=== PATIENT | female | born 1940 | race Caucasian/White ===

== ENCOUNTER 2017-07-30 10:18 | Inpatient (IN) ==
[2017-07-30] MEDS ORDERED: *HR* Heparin 5,000 UNIT/ML VIAL IVP ONE (14:13)
[2017-07-30] MEDS ORDERED: *HR* Heparin 5,000 UNIT/ML VIAL IVP PRN ×2 (14:13)
[2017-07-30] MEDS ORDERED: Heparin 25,000 UNIT/500 ML D5W 25,000 UNIT/500 ML MLS IVC SCH (14:15)
[2017-07-30] MEDS ORDERED: Ondansetron 4 MG/2 ML VIAL IVP PRN (14:15)
[2017-07-30] MEDS ORDERED: Naloxone 0.4 MG/ML INJ IVP PRN (14:15)
[2017-07-30 14:49] LABS: Hematocrit 35.8 % (35.3-44.9); Hemoglobin 12.1 g/dL (11.5-15.4); Mean Corpuscular HGB Conc 33.8 g/dL (31.6-35.5); Mean Corpuscular Hemoglobin 30.7 pg (28.0-33.3); Mean Corpuscular Volume 90.9 fL (83.0-100.0); Platelet Count 262 K/mcL (140-400); Red Blood Count 3.94 M/mcL (3.82-4.97); Red Cell Distribution Width 13.2 % (11.5-14.5)
[2017-07-30 15:00] LABS: INR 1.1; Prothrombin Time 12.3 Seconds (9.4-12.1)
[2017-07-30 15:03] LABS: Activated Partial Thrombo Time 31.2 Seconds (26.0-36.0)
--- NOTE | 2017-07-30 17:36 | Internal Med History&Physical ---
<Cody Guajardo - Last Filed: 07/30/17 18:41> Date of Encounter: 07/30/17 Time of Encounter: 13:00 Assessment and Plan (1) Elevated troponin Current visit: Yes Status: Acute Acutely elevated troponin of 0.16 on admission. Pt. is non-verbal but able to say that her chest hurt. Echocardiogram ordered STAT. Troponins trended x2. Cardiology consult ordered w/recommendation to begin heparin drip. Prior to beginning heparin drip, pt. found to have vaginal bleeding. Order for heparin drip discontinued per cardiology. pot puncher consulted who recommended transferring pt. Discussed the situation w/pts. son regarding transfer to [place] versus staying here w/Palliative Care consult. Pts. son (her POA) expressed wish to keep her at [place] w/Palliative Care. Palliative consult placed and discussed w/ Hien who will see pt. Discussed w/pts. son regarding changing code status from full code to DNRCC. Son authorized change to DNRCC. Pt. is at high risk for further morbidity d/t current troponin, vaginal bleeding, leukocytosis, and co-morbidities. Inpatient. (2) Leukocytosis Current visit: Yes Status: Acute Acute leukocytosis w/WBC of 13.6. Patient does not met SIRS criteria. IVPB ceftriaxone 1,000 mg daily and azithromycin 500 mg daily ordered for infection coverage. Monitor f/u labs. Qualifiers: Leukocytosis type: unspecified Qualified Code(s): D72.829 - Elevated white blood cell count, unspecified (3) Vaginal bleeding Current visit: Yes Status: Ruled-out Acute vaginal bleeding discovered today when pts. disposable underwear changed. pot puncher consult ordered and discussed w/Dr. Blank who recommended to transfer the pt. Discussed transfer vs. palliative care w/pts. son who expressed wish to keep her here under Palliative Care. (4) SOB (shortness of breath) Current visit: Yes Status: Acute Acute SOB likely d/t COPD versus possible pneumonia per CXR. Supplemental O2 w/ titration and SpO2 monitoring. DuoNebs Q6 scheduled. (5) Diabetes Current visit: Yes Status: Chronic Hx of chronic diabetes controlled w/oral anti-hyperglycemic medications. Will hold oral meds and administer low-dose correction insulin sliding scale with hypoglycemic protocol. BG checks ACHS. A1c in a.m. labs. Qualifiers: Diabetes mellitus type: type 2 Diabetes mellitus complication status: with unspecified complications Diabetes mellitus penitentiary insulin use: without penitentiary use Qualified Code(s): E11.8 - Type 2 diabetes mellitus with unspecified complications (6) HTN (hypertension) Current visit: Yes Status: Chronic Hx of chronic HTN. Pt. does not currently take HTN medication. Will monitor pt. and VS and administer lisinopril if pt. becomes hypertensive. Qualifiers: Hypertension type: essential hypertension Qualified Code(s): I10 - Essential (primary) hypertension (7) Dementia Current visit: Yes Status: Chronic Hx of chronic Alzheimer's-related dementia. Pt. is currently non-verbal and does not make eye contact. Falls/safety precautions. Sitter ordered. Qualifiers: Dementia type: Alzheimer's disease Alzheimer's disease onset: unspecified onset Dementia behavioral disturbance: without behavioral disturbance Qualified Code(s): G30.9 - Alzheimer's disease, unspecified; F02.80 - Dementia in other diseases classified elsewhere without behavioral disturbance; F02.80 - Dementia in other diseases classified elsewhere without behavioral disturbance; F02.80 - Dementia in other diseases classified elsewhere without behavioral disturbance (8) DVT prophylaxis Current visit: Yes Status: Acute Bilateral SCDs on LEs for DVT prophylaxis. Pharmacologic DVT prophylaxis contraindicated d/t vaginal bleeding. Internal Medicine - H&P: HPI Chief complaint: SOB/Dyspnea Admitted From: Emergency Dept Plans for Post Hospital Care: Home History of present illness: Ms. Hewitt is a 77 year old female with medical hx of CHF, dementia, diabetes , and hypertension [facility] with chief complaint of shortness of breath, dyspnea, and elevated troponin of 0.16. Patient has advanced dementia and is non-verbal during examination. The only information given by the patient is that her chest was hurting in the center of her chest. She was not able to tell how long, if it radiates, or any other information regarding current sx or denial of sx. Pt. has elevated WBC of 13.6, glucose of 186, and BNP of 244. Past Med Surg Social Fam HX - Past Medical History Source: old records reviewed Medical history: CHF, dementia, diabetes, hypertension Psychiatric history: anxiety, bipolar, schizophrenia - Social History Smoking Status: Former smoker Smokeless Tobacco Status: No Alcohol use: none Internal Medicine - H&P: Meds Bisacodyl [Woman's Laxative] 5 mg PO PRN PRN 07/28/17 [History] Cranberry 900 mg PO DAILY 07/28/17 [History] Divalproex Sodium [Depakote] 250 mg PO BID 07/28/17 [History] Docusate [Colace] 100 mg PO DAILY 07/28/17 [History] Furosemide [Lasix] 20 mg PO DAILY 07/28/17 [History] Levothyroxine [Synthroid] 50 mcg PO 0630 07/28/17 [History] Sitagliptin Phosphate [Januvia] 50 mg PO DAILY 07/28/17 [History] Aspirin [Lo-Dose Aspirin EC] 81 mg PO Q48H #0 07/29/17 [Rx] LORazepam [Ativan] 0.5 mg PO TID PRN #0 07/29/17 [Rx] Acetaminophen [Tylenol] 650 mg PO Q4H PRN 07/31/17 [History] Benztropine Mesylate 1 mg PO BID 07/31/17 [History] Ibuprofen [Motrin] 400 mg PO Q8H PRN 07/31/17 [History] Losartan Potassium [Cozaar] 50 mg PO DAILY 07/31/17 [History] Magnesium Hydroxide [Milk of Magnesia] 30 ml PO DAILY PRN 07/31/17 [History] Mv,Fe,Min/Lutein [A Thru Z [employer] Tablet] 1 tab PO DAILY 07/31/17 [ History] Ondansetron HCl [Zofran] 4 mg PO Q4H PRN 07/31/17 [History] Ziprasidone HCl [Geodon] 20 mg PO BID 07/31/17 [History] risperiDONE [RisperDAL] 1 mg PO BID 07/31/17 [History] 3 Allergy/AdvReac Type Severity Reaction Status Date / Time No Known Allergies Allergy Verified 07/28/17 06:37 ROS unobtainable: due to mental status All Systems PM: A 10-system review of systems was performed and is negative for pertinent findings except as documented above in the HPI. - Constitutional Vitals: Temp Pulse Resp BP Pulse Ox 99.7 F H 77 16 126/59 93 07/30/17 15:43 07/30/17 15:43 07/30/17 15:43 07/30/17 15:43 07/30/17 15:43 General appearance: Present: A&O X 0 - Head Head exam: Present: normal inspection - Eye Eye exam: Present: PERRL, conjuntiva pink, sclera anicteric Pupils: Present: PERRL - ENT ENT exam: Present: normal exam - Neck Neck exam general surgery: Present: normal inspection - Respiratory Respiratory exam: Present: CTAB. Absent: accessory muscle use, rales, rhonchi, wheezes - Cardiovascular Cardiovascular exam: Present: RRR, +S1, +S2. Absent: diastolic murmur, gallop, rubs, systolic murmur - GI/Abdominal GI/Abdominal exam: Present: normal bowel sounds, soft, no peritoneal signs. Absent: distended, tenderness - Rectal Rectal exam: Present: deferred - Additional comments: exam deferred. - Extremities Exam Extremities exam: Present: warm, radial pulses palpable and symmetrical. Absent : calf tenderness, cyanotic, pedal edema - Back Exam Back exam: Present: normal inspection - Neurological Exam Neurological exam: Present: altered - Skin Skin exam: Present: dry, intact Additional comments: Bruising present on backs of bilateral hands. Pt. also has bruising above left eye and ecchymosis under left eye. Internal Med - H&P Results - Labs CBC & Chem 7: 07/30/17 14:31 Labs: Short CBC 07/30/17 Range/Units 14:31 WBC 13.2 H (4.3-11.1) K/mcL Hgb 12.1 (11.5-15.4) g/dL Hct 35.8 (35.3-44.9) % Plt Count 262 (140-400) K/mcL Cardiac Enzymes 07/30/17 Range/Units 14:36 Troponin I 0.15 H* (0-0.03) ng/mL - EKG Data EKG shows normal: sinus rhythm Rate: tachycardia - EKG Data Prior EKG available for review: no EKG comments: 07/30/17 17:52 EKG dated 07/28/17 shows sinus tachycardia with left bundle branch block. - Diagnostic Studies Chest x-ray Additional comments: XR/XR chest 1V portable IMPRESSION: Haziness along the left hemidiaphragm most likely atelectasis. A small segment of developing pneumonia less likely. No consolidation otherwise <Divina,Winston P - Last Filed: 07/31/17 13:35> Date of Encounter: 07/31/17 Internal Medicine - H&P: HPI History of present illness: Ms. Hewitt is a 77 year old female All Systems PM: A 10-system review of systems was performed and is negative for pertinent findings except as documented above in the HPI. - Constitutional Vitals: Temp Pulse Resp BP Pulse Ox 97.7 F 79 16 133/68 94 07/31/17 07:00 07/31/17 07:00 07/31/17 11:01 07/31/17 07:00 07/31/17 11:01 Internal Med - H&P Results - Labs CBC & Chem 7: 07/31/17 02:46 07/31/17 02:46 Labs: Short CBC 07/30/17 07/31/17 Range/Units 14:31 02:46 WBC 13.2 H 8.6 (4.3-11.1) K/mcL Hgb 12.1 11.0 L (11.5-15.4) g/dL Hct 35.8 33.1 L (35.3-44.9) % Plt Count 262 258 (140-400) K/mcL Neutrophils # 6.6 (1.6-8.9) K/mcL BMP 07/31/17 02:46 Sodium 140 Potassium 4.0 Chloride 107 Carbon Dioxide 23 BUN 19 Creatinine 0.99 Glucose 161 H Calcium 9.2 Cardiac Enzymes 07/30/17 07/30/17 07/31/17 Range/Units 14:36 20:57 02:46 Troponin I 0.15 H* 0.08 H* 0.07 H* (0-0.03) ng/mL Liver Function 07/31/17 Range/Units 02:46 Total Bilirubin 0.3 (0.2-1.2) mg/dL AST 23 (5-34) Units/L ALT 14 (0-55) Units/L Alkaline Phosphatase 60 (38-126) Units/L Albumin 2.9 L (3.5-5.0) g/dL - Impressions ITS Impressions Echocardiogram 07/30/17 14:11 Impressions: Normal sinus rhythm. LVEF 55%. Mild concentric left ventricular hypertrophy. Mild left ventricular diastolic dysfunction. Mild aortic regurgitation. Trace mitral regurgitation. Mild tricuspid regurgitation. Left Ventricular Wall Motion: Rest Echo Findings The mid inferior lateral wall was not visualized. All other visualized wall segments showed normal motion. Findings: Study Quality * Technically adequate exam. ECG Findings * Normal sinus rhythm. Left Ventricle * LVEF 55%. * Normal LV chamber size, wall thickness and function. * Mild concentric left ventricular hypertrophy. * Mild left ventricular diastolic dysfunction. * There is no LV thrombus. Right Ventricle * Normal right ventricular structure and function. Left Atrium * Normal left atrial size. Right Atrium * Normal right atrial size. Aortic Valve * Trileaflet aortic valve. * Normal aortic valve structure. * Mild aortic regurgitation. Mitral Valve * Normal mitral valve structure. * Trace mitral regurgitation. Tricuspid Valve * Normal tricuspid valve structure. * Mild tricuspid regurgitation. * No pulmonary hypertension. Pulmonic Valve * Pulmonic valve is not well visualized. Aorta * Normally sized aortic root. Pericardium * The pericardium appears normal. ADDENDUM: 07/30/17 1803 Impressions: Normal sinus rhythm. LVEF 55%. Mild concentric left ventricular hypertrophy. Mild left ventricular diastolic dysfunction. Mild aortic regurgitation. Trace mitral regurgitation. Mild tricuspid regurgitation. Left Ventricular Wall Motion: Rest Echo Findings The mid inferior lateral wall was not visualized. All other visualized wall segments showed normal motion. Findings: Study Quality * Technically adequate exam. ECG Findings * Normal sinus rhythm. Left Ventricle * LVEF 55%. * Normal LV chamber size, wall thickness and function. * Mild concentric left ventricular hypertrophy. * Mild left ventricular diastolic dysfunction. * There is no LV thrombus. Right Ventricle * Normal right ventricular structure and function. Left Atrium * Normal left atrial size. Right Atrium * Normal right atrial size. Aortic Valve * Trileaflet aortic valve. * Normal aortic valve structure. * Mild aortic regurgitation. Mitral Valve * Normal mitral valve structure. * Trace mitral regurgitation. Tricuspid Valve * Normal tricuspid valve structure. * Mild tricuspid regurgitation. * No pulmonary hypertension. Pulmonic Valve * Pulmonic valve is not well visualized. Aorta * Normally sized aortic root. Pericardium * The pericardium appears normal. Abdomen/Pelvis CT 07/30/17 20:30 IMPRESSION: Mild mural thickening is demonstrated of the rectum. This can be due to proctitis though given patient history of bleeding, neoplasm is an additional differential consideration. Suggest correlation with any recent colonoscopy. Small bladder calculi. Uterine fibroid. Trace bilateral pleural effusions. D/ / Ramírez Price MD / Ramírez Price MD Interpreting Provider: Ramírez Price MD Chest X-Ray 07/31/17 08:21 IMPRESSION: Technically limited study due to patient positioning. Evaluation of the left lower lung zone is limited. No obvious change from prior imaging. D/ / Lauro Hudson MD / Lauro Hudson MD Interpreting Provider: Lauro Hudson MD - Attending Attestation I examined this patient and my medical decision-making was reviewed with the Resident Physician/CHIEF DISPATCHER. I agree with the documented findings, disposition and treatment plan as described except to the extent set forth below. agree with below updated palliative care and [facility] hospitalist in person regarding patent plan
[2017-07-30] MEDS ORDERED: Dextrose Gel 15 GM PO PRN ×2 (18:10)
[2017-07-30] MEDS ORDERED: D5% in Water 1,000 ML IVC PRN (18:10)
[2017-07-30] MEDS ORDERED: *HR* Dextrose 50 % in Water (Syg) 50 ML SYRINGE IVP PRN (18:10)
--- NOTE | 2017-07-30 18:32 | OB/GYN Consult Note ---
Date of Encounter: 07/30/17 Time of Encounter: 18:30 Assessment and Plan (1) Vaginal bleeding Current Visit: Yes Status: Ruled-out Pap was obtained. No bleeding was appreciated on bimanual exam nor on Pap smear. Recommend evaluation of other etiologies of bleeding. History of Present Illness Consult date: 07/30/17 History of present illness: 77-year-old white female who is admitted for medical problems was found to have "vaginal bleeding" when they changed her depends. No history is able to be obtained due to the patient's mental status. Past Med Surg Social Fam HX - Past Medical History Medical history: CHF, dementia, diabetes, hypertension Psychiatric history: anxiety, bipolar, schizophrenia - Social History Smoking Status: Former smoker Smokeless Tobacco Status: No Alcohol use: none Medications and Allergies Bisacodyl [Woman's Laxative] 5 mg PO PRN PRN 07/28/17 [History] Cranberry 900 mg PO DAILY 07/28/17 [History] Divalproex Sodium [Depakote] 125 mg PO BID 07/28/17 [History] Docusate [Colace] 100 mg PO DAILY 07/28/17 [History] Furosemide [Lasix] 20 mg PO DAILY 07/28/17 [History] Levothyroxine [Synthroid] 50 mcg PO 0630 07/28/17 [History] Sitagliptin Phosphate [Januvia] 50 mg PO DAILY 07/28/17 [History] Aspirin [Lo-Dose Aspirin EC] 81 mg PO Q48H #0 07/29/17 [Rx] LORazepam [Ativan] 0.5 mg PO TID PRN #0 07/29/17 [Rx] 3 Allergy/AdvReac Type Severity Reaction Status Date / Time No Known Allergies Allergy Verified 07/28/17 06:37 Exam - Vital Signs Vital signs: Initial Vital Signs Temp Pulse Resp BP Pulse Ox 98.8 F 74 22 114/93 93 07/30/17 12:36 07/30/17 12:36 07/30/17 12:36 07/30/17 12:36 07/30/17 12:36 - Vagina Vagina: Present: normal moisture (No bleeding was noted externally nor in the vagina.) Results Result Diagrams: 07/30/17 14:31 Abnormal lab results WBC 13.2 K/mcL (4.3-11.1) H 07/30/17 14:31 PT 12.3 Seconds (9.4-12.1) H 07/30/17 14:31 Troponin I 0.15 ng/mL (0-0.03) H* 07/30/17 14:36 All other labs normal. Consult Discharge Plan - Plan Referrals: Cordell Marte MD [Primary Care Provider] - - Attending Attestation andrez conklin md [facility]og
[2017-07-30] MEDS: cefTRIAXone 1,000 MG in Water for inj. (sterile) 10 ML IVPB SCH (20:29)
[2017-07-30] MEDS: Azithromycin 500 MG in D5% in Water 250 ML IVPB SCH (20:29)
[2017-07-30] MEDS: Insulin LISPRO 300 UNITS/3 ML VIAL SQ SCH (20:30)
[2017-07-30] MEDS: Ipratropium/Albuterol Neb 3 ML IH SCH (23:10)
[2017-07-31 03:06] LABS: Basophils % 0.3 %; Hematocrit 33.1 % (35.3-44.9); Immature Granulocytes % 0.3 % (0-4); Lymphocytes # 1.2 K/mcL (0.6-4.6); Lymphocytes % 14.2 %; Mean Corpuscular HGB Conc 33.2 g/dL (31.6-35.5); Mean Corpuscular Hemoglobin 30.1 pg (28.0-33.3); Mean Corpuscular Volume 90.7 fL (83.0-100.0); Mean Platelet Volume 10.1 fL (9.4-12.4); Monocytes # 0.8 K/mcL (0.0-1.3); Monocytes % 8.7 %; Neutrophils # 6.6 K/mcL (1.6-8.9); Platelet Count 258 K/mcL (140-400); Red Blood Count 3.65 M/mcL (3.82-4.97); Red Cell Distribution Width 13.2 % (11.5-14.5); Segmented Neutrophils % 76.5 %
[2017-07-31 03:19] LABS: Alanine Aminotransferase 14 Units/L (0-55); Albumin 2.9 g/dL (3.5-5.0); Albumin/Globulin Ratio 0.9 (1.1-2.2); Alkaline Phosphatase 60 Units/L (38-126); Aspartate Amino Transferase 23 Units/L (5-34); BUN/Creatinine Ratio 19 (6-26); Bilirubin,Total 0.3 mg/dL (0.2-1.2); Blood Urea Nitrogen 19 mg/dL (7-20); Calcium 9.2 mg/dL (8.6-10.8); Carbon Dioxide 23 mEq/L (19-29); Chloride 107 mEq/L (98-109); Cholesterol 176 mg/dL (< 200); Globulin 3.3 g/dL (2.4-3.5); Glucose 161 mg/dL (70-99); HDL Cholesterol 44 mg/dL (40-59); Magnesium 2.1 mg/dL (1.6-2.6); Osmolality,Calculated 296 (280-300); Sodium 140 mEq/L (136-145); Total Protein 6.2 g/dL (6.0-8.3); eGFR For African Americans > 60 (> 60); eGFR For Non-African Americans 54 (> 60)
[2017-07-31 03:34] LABS: LDL Cholesterol,Calculated 113 mg/dL (0-99); Triglycerides 96 mg/dL (< 150)
[2017-07-31] MEDS: Ipratropium/Albuterol Neb 3 ML IH SCH ×4 (04:15→21:54)
[2017-07-31] MEDS: Insulin LISPRO 300 UNITS/3 ML VIAL SQ SCH ×4 (08:12→22:04)
--- NOTE | 2017-07-31 08:46 | Cardiothoracic Consult Note ---
Date of Encounter: 07/31/17 Time of Encounter: 08:46 - History of Present Illness History of present illness: Ms. Hewitt is a 77 year old female Past Med Surg Social Fam HX - Past Medical History Medical history: CHF, dementia, diabetes, hypertension Psychiatric history: anxiety, bipolar, schizophrenia - Social History Smoking Status: Former smoker Smokeless Tobacco Status: No Alcohol use: none Medications and Allergies Bisacodyl [Woman's Laxative] 5 mg PO PRN PRN 07/28/17 [History] Cranberry 900 mg PO DAILY 07/28/17 [History] Divalproex Sodium [Depakote] 125 mg PO BID 07/28/17 [History] Docusate [Colace] 100 mg PO DAILY 07/28/17 [History] Furosemide [Lasix] 20 mg PO DAILY 07/28/17 [History] Levothyroxine [Synthroid] 50 mcg PO 0630 07/28/17 [History] Sitagliptin Phosphate [Januvia] 50 mg PO DAILY 07/28/17 [History] Aspirin [Lo-Dose Aspirin EC] 81 mg PO Q48H #0 07/29/17 [Rx] LORazepam [Ativan] 0.5 mg PO TID PRN #0 07/29/17 [Rx] 3 Allergy/AdvReac Type Severity Reaction Status Date / Time No Known Allergies Allergy Verified 07/28/17 06:37 All Systems Review: A 10-system review of systems was performed and is negative for pertinent findings except as documented above in the HPI. Physical Examination Vital Signs, Last 4 Hours Temp Pulse Resp BP Pulse Ox 07/31/17 07:00 97.7 F 79 15 133/68 95 07/31/17 05:53 98.4 F 70 24 124/59 99 Results 07/31/17 02:46 07/31/17 02:46 Lab Results, Last 24 hours 07/30/17 07/30/17 07/30/17 14:31 14:31 14:36 WBC 13.2 H Hgb 12.1 Hct 35.8 Plt Count 262 INR 1.1 APTT 31.2 Sodium Potassium Chloride Carbon Dioxide BUN Creatinine Glucose Calcium Magnesium Total Bilirubin AST ALT Alkaline Phosphatase Troponin I 0.15 H* 07/30/17 07/31/17 07/31/17 20:57 02:46 02:46 WBC 8.6 Hgb 11.0 L Hct 33.1 L Plt Count 258 INR APTT Sodium Potassium Chloride Carbon Dioxide BUN Creatinine Glucose Calcium Magnesium Total Bilirubin AST ALT Alkaline Phosphatase Troponin I 0.08 H* 0.07 H* 07/31/17 02:46 WBC Hgb Hct Plt Count INR APTT Sodium 140 Potassium 4.0 Chloride 107 Carbon Dioxide 23 BUN 19 Creatinine 0.99 Glucose 161 H Calcium 9.2 Magnesium 2.1 Total Bilirubin 0.3 AST 23 ALT 14 Alkaline Phosphatase 60 Troponin I Consult Discharge Plan - Plan Referrals: Cordell Marte MD [Primary Care Provider] -
[2017-07-31] MEDS: cefTRIAXone 1,000 MG in Water for inj. (sterile) 10 ML IVPB SCH (08:53)
--- NOTE | 2017-07-31 08:58 | Cardiology Consult Note ---
<Markos Padilla - Last Filed: 07/31/17 12:53> Date of Encounter: 07/31/17 Time of Encounter: 08:58 Assessment and Plan (1) Elevated troponin Current Visit: Yes Status: Acute Trop 0.02 > 0.05 > 0.05 > 0.16 > 0.15 > 0.08 > 0.07 ECHO shows EF 55%, mild TR, AR with mild LV diastolic dysfunction Cr 0.99 BNP 244 Nonverbal at this point and unable to adequately assess for active chest pain EKG consistent with LBBB In the setting of down trending troponins, no acute distress, normal ECHO, we recommend medical therapy at this time. Starting ASA and Lipitor. Followup as needed upon discharge. Cardiology will sign off at this time. Please re-consult if there are any future questions or concerns. Thanks for involving us in Ms. Hewitt's care. (2) LBBB (left bundle branch block) Current Visit: Yes Status: Acute Likely not new-onset d/t lack of significant trop bump, physical appearance and EF was normal on echo. (3) HTN (hypertension) Current Visit: Yes Status: Chronic Stable at this time. Medicine managing. Home med - Cozaar Qualifiers: Hypertension type: essential hypertension Qualified Code(s): I10 - Essential (primary) hypertension (4) DM type 2 (diabetes mellitus, type 2) Current Visit: No Status: Acute Medicine managing. Last A1c 6.0 Qualifiers: Diabetes mellitus complication status: with unspecified complications Diabetes mellitus senior care insulin use: without senior care use Qualified Code( s): E11.8 - Type 2 diabetes mellitus with unspecified complications (5) Leukocytosis Current Visit: Yes Status: Acute Trending down. Unable to obtain UA per medicine. On dual abx therapy. WBC 13.2 > 8.6 Qualifiers: Leukocytosis type: unspecified Qualified Code(s): D72.829 - Elevated white blood cell count, unspecified (6) Dementia Current Visit: Yes Status: Chronic Nonverbal. Incontinent. Unaware of baseline. Qualifiers: Dementia type: Alzheimer's disease Alzheimer's disease onset: unspecified onset Dementia behavioral disturbance: without behavioral disturbance Qualified Code(s): G30.9 - Alzheimer's disease, unspecified; F02.80 - Dementia in other diseases classified elsewhere without behavioral disturbance; F02.80 - Dementia in other diseases classified elsewhere without behavioral disturbance; F02.80 - Dementia in other diseases classified elsewhere without behavioral disturbance (7) Schizophrenia Current Visit: Yes Status: Chronic Patient is taking Risperdal and Geodon at home. Qualifiers: Schizophrenia type: unspecified Qualified Code(s): F20.9 - Schizophrenia, unspecified (8) Bipolar disorder Current Visit: Yes Status: Chronic See above. Qualifiers: Active/Remission status: remission status unspecified Qualified Code(s): F31.9 - Bipolar disorder, unspecified Discussion w patient/family: The assessment and plan as outlined above was discussed with the patient and/or family members who expressed understanding and agreement. All questions were answered. Thank you for involving us in the care of your patient. Please call with any questions. History of Present Illness History of present illness: Ms. Hewitt is a very pleasant 77 year old female with a past medical history dementia, HTN, DM, schizophrenia and bipolar disease who presented to the [facility] ED after transfer from [facility] ED after she found to have hypoxia and fever. Patient is nonverbal and this report is generated from EMR review and other clinicians. On arrival to the ED, she was found to have a WBC 13.2, Cr 0.99, BNP 244 and trop 0.02 > 0.05 > 0.05 > 0.16 > 0.15 > 0.08 > 0.07. Patient was mostly non-verbal but did express chest pain. Heparin drip was started. She was subsequently admitted via the hospitalist service and cardiology was consulted. On evaluation, no significant cardiac history per EMR. ECHO performed on 07/30/17 demonstrates EF 55%, mild TR/AR and mild LV diastolic dysfunction. After heparin was started, blood was found in her depends and anticoagulation was discontinued. OB-DIRECTOR OF EVENT MARKETING was consulted and found no source of the bleeding. She is a resident at [facility] and family decided yesterday to change her DNR status to DNR-CC. Abdominal CT demonstrates findings consistent with proctitis/mass and suggests further investigation. We will continue to follow and offer further recommendations and interventions. Past Med Surg Social Fam HX - Past Medical History Medical history: CHF, dementia, diabetes, hypertension Psychiatric history: anxiety, bipolar, schizophrenia - Social History Smoking Status: Former smoker Smokeless Tobacco Status: No Alcohol use: none Medications and Allergies Bisacodyl [Woman's Laxative] 5 mg PO PRN PRN 07/28/17 [History] Cranberry 900 mg PO DAILY 07/28/17 [History] Divalproex Sodium [Depakote] 250 mg PO BID 07/28/17 [History] Docusate [Colace] 100 mg PO DAILY 07/28/17 [History] Furosemide [Lasix] 20 mg PO DAILY 07/28/17 [History] Levothyroxine [Synthroid] 50 mcg PO 0630 07/28/17 [History] Sitagliptin Phosphate [Januvia] 50 mg PO DAILY 07/28/17 [History] Aspirin [Lo-Dose Aspirin EC] 81 mg PO Q48H #0 07/29/17 [Rx] LORazepam [Ativan] 0.5 mg PO TID PRN #0 07/29/17 [Rx] Acetaminophen [Tylenol] 650 mg PO Q4H PRN 07/31/17 [History] Benztropine Mesylate 1 mg PO BID 07/31/17 [History] Ibuprofen [Motrin] 400 mg PO Q8H PRN 07/31/17 [History] Losartan Potassium [Cozaar] 50 mg PO DAILY 07/31/17 [History] Magnesium Hydroxide [Milk of Magnesia] 30 ml PO DAILY PRN 07/31/17 [History] Mv,Fe,Min/Lutein [A Thru Z [employer]'s Tablet] 1 tab PO DAILY 07/31/17 [ History] Ondansetron HCl [Zofran] 4 mg PO Q4H PRN 07/31/17 [History] Ziprasidone HCl [Geodon] 20 mg PO BID 07/31/17 [History] risperiDONE [RisperDAL] 1 mg PO BID 07/31/17 [History] 3 Allergy/AdvReac Type Severity Reaction Status Date / Time No Known Allergies Allergy Verified 07/28/17 06:37 ROS unobtainable: due to mental status All Systems Review: A 10-system review of systems was performed and is negative for pertinent findings except as documented above in the HPI. Physical Examination Vital Signs, Last 4 Hours Temp Pulse Resp BP Pulse Ox 07/31/17 07:00 97.7 F 79 15 133/68 95 07/31/17 05:53 98.4 F 70 24 124/59 99 General: Other (sitting in bed, not conversant, focused on bedding and keeps running her hands down the edge of the blanket but cooperates with exam.) HEENT: Atraumatic, Normocephaly, Mucus Membranes Moist Neck: No JVD, Normal carotid pulses Cardiac: Reg Rate and Rhythm, Normal S1 and S2, No Murmur Lungs: Normal Breath Sounds, No Wheeze, Rales, Rhonchi Neuro: Other (nonverbal) Abdomen: Soft, Non-Tender Skin: No rashes noted on visualized skin Musculoskeletal: No Chest Wall Tenderness Extremities: No Clubbing, No Cyanosis, No Edema, Normal Pulses Results 07/31/17 02:46 07/31/17 02:46 Lab Results 07/30/17 07/30/17 07/30/17 14:31 14:31 14:36 WBC 13.2 H Hgb 12.1 Hct 35.8 Plt Count 262 INR 1.1 APTT 31.2 Sodium Potassium Chloride Carbon Dioxide BUN Creatinine Glucose Calcium Magnesium Total Bilirubin AST ALT Alkaline Phosphatase Troponin I 0.15 H* 07/30/17 07/31/17 07/31/17 20:57 02:46 02:46 WBC 8.6 Hgb 11.0 L Hct 33.1 L Plt Count 258 INR APTT Sodium Potassium Chloride Carbon Dioxide BUN Creatinine Glucose Calcium Magnesium Total Bilirubin AST ALT Alkaline Phosphatase Troponin I 0.08 H* 0.07 H* 07/31/17 02:46 WBC Hgb Hct Plt Count INR APTT Sodium 140 Potassium 4.0 Chloride 107 Carbon Dioxide 23 BUN 19 Creatinine 0.99 Glucose 161 H Calcium 9.2 Magnesium 2.1 Total Bilirubin 0.3 AST 23 ALT 14 Alkaline Phosphatase 60 Troponin I - Imaging and Cardiology Chest Xray: report reviewed Echo: report reviewed - EKG Interpretation EKG results cardiology: personally reviewed, left bundle branch block Consult Discharge Plan - Plan Referrals: Cordell Marte MD [Primary Care Provider] - <Luz Roque - Last Filed: 07/31/17 18:36> Date of Encounter: 07/31/17 - Attending Attestation I examined this patient and my medical decision-making was reviewed with the Resident Physician. I agree with the documented findings, disposition and treatment plan as described except to the extent set forth below. Ms. Hewitt was transferred from her nursing facility with hypoxia and fever. She was noted to have a mildly elevated troponin and heparin drip was started but then subsequently stopped secondary to concern for vaginal bleeding. She had an echo performed demonstrating normal LV systolic function and an EKG demonstrating LBBB - no prior EKG for comparison. She has baseline dementia making communication difficult. She is not able to report recent symptoms. Nevertheless, her echo done this admission demonstrated normal LV systolic function. No further testing is warranted at this time. Recommend conservative medical management given her comorbidities. Continue aspirin (no vaginal bleeding per DIRECTOR OF EVENT MARKETING) and statin. We will sign off. Please call with questions. Assessment and Plan Discussion w patient/family: The assessment and plan as outlined above was discussed with the patient and/or family members who expressed understanding and agreement. All questions were answered. Thank you for involving us in the care of your patient. Please call with any questions. History of Present Illness History of present illness: Ms. Hewitt is a 77 year old female All Systems Review: A 10-system review of systems was performed and is negative for pertinent findings except as documented above in the HPI. Physical Examination Vital Signs, Last 4 Hours Temp Pulse Resp BP Pulse Ox 07/31/17 16:14 16 98 07/31/17 15:00 98.3 F 82 20 142/65 97 Results 07/31/17 02:46 07/31/17 02:46 Lab Results 07/30/17 07/31/17 07/31/17 20:57 02:46 02:46 WBC 8.6 Hgb 11.0 L Hct 33.1 L Plt Count 258 Sodium Potassium Chloride Carbon Dioxide BUN Creatinine Glucose Calcium Magnesium Total Bilirubin AST ALT Alkaline Phosphatase Troponin I 0.08 H* 0.07 H* 07/31/17 02:46 WBC Hgb Hct Plt Count Sodium 140 Potassium 4.0 Chloride 107 Carbon Dioxide 23 BUN 19 Creatinine 0.99 Glucose 161 H Calcium 9.2 Magnesium 2.1 Total Bilirubin 0.3 AST 23 ALT 14 Alkaline Phosphatase 60 Troponin I
--- NOTE | 2017-07-31 09:07 | Internal Med Progress Note ---
<Danny Flores - Last Filed: 07/31/17 16:13> Date of Encounter: 07/31/17 Time of Encounter: 09:04 - Assessment and plan (1) HAP (hospital-acquired pneumonia) Current Visit: Yes Status: Suspected Assessment and plan: Resident at [facility], patient reports productive cough CT abd reveals trace bilateral pleural effusions CXR reveals haziness along the left hemidiaphragm/ possible early PNA Speech therapy started patient on pureed diet and thin liquids Blood cultures show no growth to date Sputum culture pending Continue empiric Azithromycin and Rocephin Continue to monitor (2) UTI (urinary tract infection) Current Visit: Yes Status: Acute Assessment and plan: UA reveals cloudy appearance, hematuria, and ketones Urine culture revealed Aerococcus urinae, sensitivity pending De-escalate antibiotics based on culture results Qualifiers: Urinary tract infection type: site unspecified Hematuria presence: with hematuria Qualified Code(s): N39.0 - Urinary tract infection, site not specified; R31.9 - Hematuria, unspecified; R31.9 - Hematuria, unspecified (3) Anemia Current Visit: Yes Status: Acute Assessment and plan: HGB dropped from 12.[address] abd/plv reveals mild mural thickening is demonstrated of the rectum. This can be due to proctitis though given patient history of bleeding, neoplasm is an additional differential consideration. Suggest correlation with any recent colonoscopy. UROLOGY NURSE consulted and ruled out vaginal bleed Fecal occult blood test pending No signs of active bleeding Will discussed treatment options with family Continue to monitor Qualifiers: Anemia type: unspecified type Qualified Code(s): D64.9 - Anemia, unspecified (4) Meningioma Current Visit: No Status: Acute Assessment and plan: Family reports she was sent to the ED due to foaming at the mouth, possible history of seizures and patient is currently on Depakote Patient has tongue erythema but no tongue lacerations CT brain reveals 2.2 x 2.5 x 2.6 cm partially calcified extra-axial mass centered along the anterior falx, with local mass effect upon the adjacent structures, likely related to a meningioma. Follow-up brain MRI with and without contrast is recommended Seizure precautions, consider obtaining EEG Case discussed with family. Family decided yesterday to change her DNR status to DNR-CC. Anticipate bedside meeting tomorrow to discuss further treatment plan. (5) Dementia Current Visit: Yes Status: Chronic Assessment and plan: Advanced Dementia per family Continue home Geodon and Ativan prn Qualifiers: Dementia type: Alzheimer's disease Alzheimer's disease onset: unspecified onset Dementia behavioral disturbance: without behavioral disturbance Qualified Code(s): G30.9 - Alzheimer's disease, unspecified; F02.80 - Dementia in other diseases classified elsewhere without behavioral disturbance; F02.80 - Dementia in other diseases classified elsewhere without behavioral disturbance; F02.80 - Dementia in other diseases classified elsewhere without behavioral disturbance (6) Parkinsonian tremor Current Visit: Yes Status: Acute Assessment and plan: Continue Cogentin (7) Elevated troponin Current Visit: Yes Status: Acute Assessment and plan: Trop 0.02 > 0.05 > 0.05 > 0.16 > 0.15 > 0.08 > 0.07 ECHO shows EF 55%, mild TR, AR with mild LV diastolic dysfunction Cardiology sign off, current unlikely ACS (8) LBBB (left bundle branch block) Current Visit: Yes Status: Acute Assessment and plan: Cardiology following and signed off (9) HTN (hypertension) Current Visit: Yes Status: Chronic Assessment and plan: Continue Cozaar and Lasix Qualifiers: Hypertension type: essential hypertension Qualified Code(s): I10 - Essential (primary) hypertension (10) DM type 2 (diabetes mellitus, type 2) Current Visit: No Status: Acute Assessment and plan: HGB A1c 6.0 Continue accuchecks and low dose SSI Qualifiers: Diabetes mellitus complication status: with unspecified complications 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 Patient is A&Ox1 and reports productive cough. She denies any further c/o at this time. Nursing reports inability to obtain UA due to urinary incontinence. Patient has no signs of active bleeding on exam and HGB is slightly decreased. Abdominal CT demonstrates findings consistent with proctitis/mass and suggests further investigation. Case discussed with family. Family decided yesterday to change her DNR status to DNR-CC. Anticipate bedside meeting tomorrow to discuss further treatment plan. - Constitutional Vitals: Temp Pulse Resp BP Pulse Ox 97.7 F 79 15 133/68 95 07/31/17 07:00 07/31/17 07:00 07/31/17 07:00 07/31/17 07:00 07/31/17 07:00 General appearance: Present: A&O X 1, pleasant, no acute distress. Absent: answers questions appropriately - Expanded Head Exam Head exam expanded: Present: contusion (left frontal scalp). Absent: abrasion, laceration - Eye Eye exam: Present: EOMI, conjuntiva pink, sclera anicteric - ENT ENT exam: Present: mucous membranes dry, normal oropharynx - Neck Neck exam general surgery: Present: normal inspection, supple - Respiratory Respiratory exam: Present: decreased breath sounds (bilaterally, poor inspiratory effort). Absent: accessory muscle use, respiratory distress - Cardiovascular Cardiovascular exam: Present: RRR, +S1, +S2 - GI/Abdominal GI/Abdominal exam: Present: soft. Absent: distended, guarding, tenderness - Rectal Rectal exam: Present: normal inspection. Absent: bloody stool, hemorrhoids - Additional comments: no ramirez - Extremities Exam Extremities exam: Present: warm. Absent: pedal edema, radial pulses palpable and symmetrical - Back Exam Back exam: Present: normal inspection. Absent: paraspinal tenderness, tenderness - Neurological Exam Neurological exam: Present: altered, no focal deficits. Absent: oriented X3 - Expanded Neurological Exam Neurological exam expanded: Present: tremor (Pill rolling tremor, mask-like face ) Coma Scale Eye Opening: Spontaneous Coma Scale Motor Response: Localizes to Pain Coma Scale Verbal Response: Confused Coma Scale Total: 13 - Psychiatric Additional comments: unable to access - Skin Skin exam: Present: dry, intact, warm. Absent: pallor Additional comments: no decubitus ulcers Internal Medicine: Result - Labs CBC & Chem 7: 07/31/17 02:46 07/31/17 02:46 Labs: Short CBC 07/30/17 07/31/17 Range/Units 14:31 02:46 WBC 13.2 H 8.6 (4.3-11.1) K/mcL Hgb 12.1 11.0 L (11.5-15.4) g/dL Hct 35.8 33.1 L (35.3-44.9) % Plt Count 262 258 (140-400) K/mcL Neutrophils # 6.6 (1.6-8.9) K/mcL BMP 07/31/17 02:46 Sodium 140 Potassium 4.0 Chloride 107 Carbon Dioxide 23 BUN 19 Creatinine 0.99 Glucose 161 H Calcium 9.2 Cardiac Enzymes 07/30/17 07/30/17 07/31/17 Range/Units 14:36 20:57 02:46 Troponin I 0.15 H* 0.08 H* 0.07 H* (0-0.03) ng/mL Liver Function 07/31/17 Range/Units 02:46 Total Bilirubin 0.3 (0.2-1.2) mg/dL AST 23 (5-34) Units/L ALT 14 (0-55) Units/L Alkaline Phosphatase 60 (38-126) Units/L Albumin 2.9 L (3.5-5.0) g/dL - ABG Interpretation ABG results: PT/INR, D-dimer PT 12.3 Seconds (9.4-12.1) H 07/30/17 14:31 - Pulse Oximetry Interpretation Digit-Finger Pulse Oximetry Readin (on 2L via NC) Actions taken: none - Impressions Impressions Echocardiogram 07/30/17 14:11 Impressions: Normal sinus rhythm. LVEF 55%. Mild concentric left ventricular hypertrophy. Mild left ventricular diastolic dysfunction. Mild aortic regurgitation. Trace mitral regurgitation. Mild tricuspid regurgitation. Left Ventricular Wall Motion: Rest Echo Findings The mid inferior lateral wall was not visualized. All other visualized wall segments showed normal motion. Findings: Study Quality * Technically adequate exam. ECG Findings * Normal sinus rhythm. Left Ventricle * LVEF 55%. * Normal LV chamber size, wall thickness and function. * Mild concentric left ventricular hypertrophy. * Mild left ventricular diastolic dysfunction. * There is no LV thrombus. Right Ventricle * Normal right ventricular structure and function. Left Atrium * Normal left atrial size. Right Atrium * Normal right atrial size. Aortic Valve * Trileaflet aortic valve. * Normal aortic valve structure. * Mild aortic regurgitation. Mitral Valve * Normal mitral valve structure. * Trace mitral regurgitation. Tricuspid Valve * Normal tricuspid valve structure. * Mild tricuspid regurgitation. * No pulmonary hypertension. Pulmonic Valve * Pulmonic valve is not well visualized. Aorta * Normally sized aortic root. Pericardium * The pericardium appears normal. ADDENDUM: 07/30/17 1803 Impressions: Normal sinus rhythm. LVEF 55%. Mild concentric left ventricular hypertrophy. Mild left ventricular diastolic dysfunction. Mild aortic regurgitation. Trace mitral regurgitation. Mild tricuspid regurgitation. Left Ventricular Wall Motion: Rest Echo Findings The mid inferior lateral wall was not visualized. All other visualized wall segments showed normal motion. Findings: Study Quality * Technically adequate exam. ECG Findings * Normal sinus rhythm. Left Ventricle * LVEF 55%. * Normal LV chamber size, wall thickness and function. * Mild concentric left ventricular hypertrophy. * Mild left ventricular diastolic dysfunction. * There is no LV thrombus. Right Ventricle * Normal right ventricular structure and function. Left Atrium * Normal left atrial size. Right Atrium * Normal right atrial size. Aortic Valve * Trileaflet aortic valve. * Normal aortic valve structure. * Mild aortic regurgitation. Mitral Valve * Normal mitral valve structure. * Trace mitral regurgitation. Tricuspid Valve * Normal tricuspid valve structure. * Mild tricuspid regurgitation. * No pulmonary hypertension. Pulmonic Valve * Pulmonic valve is not well visualized. Aorta * Normally sized aortic root. Pericardium * The pericardium appears normal. Abdomen/Pelvis CT 07/30/17 20:30 IMPRESSION: Mild mural thickening is demonstrated of the rectum. This can be due to proctitis though given patient history of bleeding, neoplasm is an additional differential consideration. Suggest correlation with any recent colonoscopy. Small bladder calculi. Uterine fibroid. Trace bilateral pleural effusions. D/ / Ramírez Price MD / Ramírez Price MD Interpreting Provider: Ramírez Price MD Chest X-Ray 07/31/17 08:21 IMPRESSION: Technically limited study due to patient positioning. Evaluation of the left lower lung zone is limited. No obvious change from prior imaging. D/ / Lauro Hudson MD / Lauro Hudson MD Interpreting Provider: Lauro Hudson MD Consult Discharge Plan - Plan Referrals: Cordell Marte MD [Primary Care Provider] - <Coleen Momin - Last Filed: 07/31/17 17:23> Date of Encounter: 07/31/17 - Constitutional Vitals: Temp Pulse Resp BP Pulse Ox 98.3 F 82 16 142/65 98 07/31/17 15:00 07/31/17 15:00 07/31/17 16:14 07/31/17 15:00 07/31/17 16:14 Internal Medicine: Result - Labs CBC & Chem 7: 07/31/17 02:46 07/31/17 02:46 Labs: Short CBC 07/31/17 Range/Units 02:46 WBC 8.6 (4.3-11.1) K/mcL Hgb 11.0 L (11.5-15.4) g/dL Hct 33.1 L (35.3-44.9) % Plt Count 258 (140-400) K/mcL Neutrophils # 6.6 (1.6-8.9) K/mcL BMP 07/31/17 02:46 Sodium 140 Potassium 4.0 Chloride 107 Carbon Dioxide 23 BUN 19 Creatinine 0.99 Glucose 161 H Calcium 9.2 Cardiac Enzymes 07/30/17 07/31/17 Range/Units 20:57 02:46 Troponin I 0.08 H* 0.07 H* (0-0.03) ng/mL Liver Function 07/31/17 Range/Units 02:46 Total Bilirubin 0.3 (0.2-1.2) mg/dL AST 23 (5-34) Units/L ALT 14 (0-55) Units/L Alkaline Phosphatase 60 (38-126) Units/L Albumin 2.9 L (3.5-5.0) g/dL - ABG Interpretation ABG results: PT/INR, D-dimer PT 12.3 Seconds (9.4-12.1) H 07/30/17 14:31 - Impressions Impressions Echocardiogram 07/30/17 14:11 Impressions: Normal sinus rhythm. LVEF 55%. Mild concentric left ventricular hypertrophy. Mild left ventricular diastolic dysfunction. Mild aortic regurgitation. Trace mitral regurgitation. Mild tricuspid regurgitation. Left Ventricular Wall Motion: Rest Echo Findings The mid inferior lateral wall was not visualized. All other visualized wall segments showed normal motion. Findings: Study Quality * Technically adequate exam. ECG Findings * Normal sinus rhythm. Left Ventricle * LVEF 55%. * Normal LV chamber size, wall thickness and function. * Mild concentric left ventricular hypertrophy. * Mild left ventricular diastolic dysfunction. * There is no LV thrombus. Right Ventricle * Normal right ventricular structure and function. Left Atrium * Normal left atrial size. Right Atrium * Normal right atrial size. Aortic Valve * Trileaflet aortic valve. * Normal aortic valve structure. * Mild aortic regurgitation. Mitral Valve * Normal mitral valve structure. * Trace mitral regurgitation. Tricuspid Valve * Normal tricuspid valve structure. * Mild tricuspid regurgitation. * No pulmonary hypertension. Pulmonic Valve * Pulmonic valve is not well visualized. Aorta * Normally sized aortic root. Pericardium * The pericardium appears normal. ADDENDUM: 07/30/17 180 Impressions: Normal sinus rhythm. LVEF 55%. Mild concentric left ventricular hypertrophy. Mild left ventricular diastolic dysfunction. Mild aortic regurgitation. Trace mitral regurgitation. Mild tricuspid regurgitation. Left Ventricular Wall Motion: Rest Echo Findings The mid inferior lateral wall was not visualized. All other visualized wall segments showed normal motion. Findings: Study Quality * Technically adequate exam. ECG Findings * Normal sinus rhythm. Left Ventricle * LVEF 55%. * Normal LV chamber size, wall thickness and function. * Mild concentric left ventricular hypertrophy. * Mild left ventricular diastolic dysfunction. * There is no LV thrombus. Right Ventricle * Normal right ventricular structure and function. Left Atrium * Normal left atrial size. Right Atrium * Normal right atrial size. Aortic Valve * Trileaflet aortic valve. * Normal aortic valve structure. * Mild aortic regurgitation. Mitral Valve * Normal mitral valve structure. * Trace mitral regurgitation. Tricuspid Valve * Normal tricuspid valve structure. * Mild tricuspid regurgitation. * No pulmonary hypertension. Pulmonic Valve * Pulmonic valve is not well visualized. Aorta * Normally sized aortic root. Pericardium * The pericardium appears normal. Abdomen/Pelvis CT 07/30/17 20:30 IMPRESSION: Mild mural thickening is demonstrated of the rectum. This can be due to proctitis though given patient history of bleeding, neoplasm is an additional differential consideration. Suggest correlation with any recent colonoscopy. Small bladder calculi. Uterine fibroid. Trace bilateral pleural effusions. D/ / Ramírez Price MD / Ramírez Price MD Interpreting Provider: Ramírez Price MD Chest X-Ray 07/31/17 08:21 IMPRESSION: Technically limited study due to patient positioning. Evaluation of the left lower lung zone is limited. No obvious change from prior imaging. D/ / Lauro Hudson MD / Lauro Hudson MD Interpreting Provider: Lauro Hudson MD - Attending Attestation I have seen and examined pt independently. I have discussed with Resident physician Dr Flores regarding the management plan. Agree with the documentation. Pt has dementia, nonverbal. Looks in no acute distress. Cont abx for pneumonia. Further goal of care determined by family meeting tomorrow. Cont supportive treatment and closely monitor pt.
--- NOTE | 2017-07-31 09:36 | Palliative - Consult Note ---
<Markos Padilla - Last Filed: 07/31/17 11:14> Date of Encounter: 07/31/17 Palliative-CN HPI - Data of Consult Requesting Physician: Coleen Momin MD Primary Care Provider: Cordell Marte MD - Consult Narrative History of present illness: Ms. Hewitt is a 77 year old female CC: Coleen Momin MD Medications and Allergies Bisacodyl [Woman's Laxative] 5 mg PO PRN PRN 07/28/17 [History] Cranberry 900 mg PO DAILY 07/28/17 [History] Divalproex Sodium [Depakote] 250 mg PO BID 07/28/17 [History] Docusate [Colace] 100 mg PO DAILY 07/28/17 [History] Furosemide [Lasix] 20 mg PO DAILY 07/28/17 [History] Levothyroxine [Synthroid] 50 mcg PO 0630 07/28/17 [History] Sitagliptin Phosphate [Januvia] 50 mg PO DAILY 07/28/17 [History] Aspirin [Lo-Dose Aspirin EC] 81 mg PO Q48H #0 07/29/17 [Rx] LORazepam [Ativan] 0.5 mg PO TID PRN #0 07/29/17 [Rx] Acetaminophen [Tylenol] 650 mg PO Q4H PRN 07/31/17 [History] Benztropine Mesylate 1 mg PO BID 07/31/17 [History] Ibuprofen [Motrin] 400 mg PO Q8H PRN 07/31/17 [History] Losartan Potassium [Cozaar] 50 mg PO DAILY 07/31/17 [History] Magnesium Hydroxide [Milk of Magnesia] 30 ml PO DAILY PRN 07/31/17 [History] Mv,Fe,Min/Lutein [A Thru Z [employer]'s Tablet] 1 tab PO DAILY 07/31/17 [ History] Ondansetron HCl [Zofran] 4 mg PO Q4H PRN 07/31/17 [History] Ziprasidone HCl [Geodon] 20 mg PO BID 07/31/17 [History] risperiDONE [RisperDAL] 1 mg PO BID 07/31/17 [History] 3 Allergy/AdvReac Type Severity Reaction Status Date / Time No Known Allergies Allergy Verified 07/28/17 06:37 Palliative Care-Exam - Constitutional Vitals: Temp Pulse Resp BP Pulse Ox 97.7 F 79 15 133/68 95 07/31/17 07:00 07/31/17 07:00 07/31/17 07:00 07/31/17 07:00 07/31/17 09:03 Internal Medicine - CN: Reslt - Labs CBC & Chem 7: 07/31/17 02:46 07/31/17 02:46 Labs: Short CBC 07/30/17 07/31/17 Range/Units 14:31 02:46 WBC 13.2 H 8.6 (4.3-11.1) K/mcL Hgb 12.1 11.0 L (11.5-15.4) g/dL Hct 35.8 33.1 L (35.3-44.9) % Plt Count 262 258 (140-400) K/mcL Neutrophils # 6.6 (1.6-8.9) K/mcL BMP 07/31/17 02:46 Sodium 140 Potassium 4.0 Chloride 107 Carbon Dioxide 23 BUN 19 Creatinine 0.99 Glucose 161 H Calcium 9.2 Cardiac Enzymes 07/30/17 07/30/17 07/31/17 Range/Units 14:36 20:57 02:46 Troponin I 0.15 H* 0.08 H* 0.07 H* (0-0.03) ng/mL Liver Function 07/31/17 Range/Units 02:46 Total Bilirubin 0.3 (0.2-1.2) mg/dL AST 23 (5-34) Units/L ALT 14 (0-55) Units/L Alkaline Phosphatase 60 (38-126) Units/L Albumin 2.9 L (3.5-5.0) g/dL - ABG Interpretation ABG results: PT/INR, D-dimer PT 12.3 Seconds (9.4-12.1) H 07/30/17 14:31 - Impressions Impressions Echocardiogram 07/30/17 14:11 Impressions: Normal sinus rhythm. LVEF 55%. Mild concentric left ventricular hypertrophy. Mild left ventricular diastolic dysfunction. Mild aortic regurgitation. Trace mitral regurgitation. Mild tricuspid regurgitation. Left Ventricular Wall Motion: Rest Echo Findings The mid inferior lateral wall was not visualized. All other visualized wall segments showed normal motion. Findings: Study Quality * Technically adequate exam. ECG Findings * Normal sinus rhythm. Left Ventricle * LVEF 55%. * Normal LV chamber size, wall thickness and function. * Mild concentric left ventricular hypertrophy. * Mild left ventricular diastolic dysfunction. * There is no LV thrombus. Right Ventricle * Normal right ventricular structure and function. Left Atrium * Normal left atrial size. Right Atrium * Normal right atrial size. Aortic Valve * Trileaflet aortic valve. * Normal aortic valve structure. * Mild aortic regurgitation. Mitral Valve * Normal mitral valve structure. * Trace mitral regurgitation. Tricuspid Valve * Normal tricuspid valve structure. * Mild tricuspid regurgitation. * No pulmonary hypertension. Pulmonic Valve * Pulmonic valve is not well visualized. Aorta * Normally sized aortic root. Pericardium * The pericardium appears normal. ADDENDUM: 07/30/17 1803 Impressions: Normal sinus rhythm. LVEF 55%. Mild concentric left ventricular hypertrophy. Mild left ventricular diastolic dysfunction. Mild aortic regurgitation. Trace mitral regurgitation. Mild tricuspid regurgitation. Left Ventricular Wall Motion: Rest Echo Findings The mid inferior lateral wall was not visualized. All other visualized wall segments showed normal motion. Findings: Study Quality * Technically adequate exam. ECG Findings * Normal sinus rhythm. Left Ventricle * LVEF 55%. * Normal LV chamber size, wall thickness and function. * Mild concentric left ventricular hypertrophy. * Mild left ventricular diastolic dysfunction. * There is no LV thrombus. Right Ventricle * Normal right ventricular structure and function. Left Atrium * Normal left atrial size. Right Atrium * Normal right atrial size. Aortic Valve * Trileaflet aortic valve. * Normal aortic valve structure. * Mild aortic regurgitation. Mitral Valve * Normal mitral valve structure. * Trace mitral regurgitation. Tricuspid Valve * Normal tricuspid valve structure. * Mild tricuspid regurgitation. * No pulmonary hypertension. Pulmonic Valve * Pulmonic valve is not well visualized. Aorta * Normally sized aortic root. Pericardium * The pericardium appears normal. Abdomen/Pelvis CT 07/30/17 20:30 IMPRESSION: Mild mural thickening is demonstrated of the rectum. This can be due to proctitis though given patient history of bleeding, neoplasm is an additional differential consideration. Suggest correlation with any recent colonoscopy. Small bladder calculi. Uterine fibroid. Trace bilateral pleural effusions. D/ / Ramírez Price MD / Ramírez Price MD Interpreting Provider: Ramírez Price MD Chest X-Ray 07/31/17 08:21 IMPRESSION: Technically limited study due to patient positioning. Evaluation of the left lower lung zone is limited. No obvious change from prior imaging. D/ / Lauro Hudosn MD / Lauro Hudson MD Interpreting Provider: Lauro Hudson MD Consult Discharge Plan - Plan Referrals: Cordell Marte MD [Primary Care Provider] - Palliative Quality Code Status: 07/30/17 14:15 Resuscitation Status: Active [RES] Routine Comment: Pt. altered. 05/27/16 paperwork shows Full Code Resuscitation Status: Full Code Resuscitation Status: Active [RES] Routine Comment: Discussed w/son (POA) who authorized change Resuscitation Status: DNR-Comfort Care <Florence Skelton - Last Filed: 07/31/17 14:36> Date of Encounter: 07/31/17 Time of Encounter: 09:30 - Assessment and Plan (1) Debility Current Visit: Yes Status: Acute Assessment and plan: PT/OT/Speech have all been ordered. May not be able to participate r/t mental status. Monitor (2) Counseling regarding advanced care planning and goals of care Current Visit: Yes Status: Acute Assessment and plan: Spoke with pt sonPhani via telephone. Patients cannot hear over the phone. Attempted to discuss clinical status via telephone, but they have limited knowledge and had a difficult time hearing and understanding what I was saying. He did call me back and stated that pt and 2 sons, Phani and William would be traveling up tomorrow around 1200. Will f/u tomorrow. D/W Dr. Flores. (3) Elevated troponin Current Visit: Yes Status: Acute Assessment and plan: Cardiology following - as previously discussed, family will be in tomorrow afternoon if they need to discuss treatment plan. Palliative-CN HPI - Data of Consult Consult date: 07/31/17 Requesting Physician: Coleen Momin MD Primary Care Provider: Cordell Marte MD - Consult Narrative History of present illness: Ms. Hewitt is a 77 year old female who is a resident at [facility], and was found with fever and hypoxic and sent to [facility] ER. Reportedly, pt primarily nonverbal, but was able to express she was having chest pain. Workup completed at [facility] and she was transferred here. WBC 13.2 on admission is now withing normal limits. She did have low grade fever last pm. Troponin 0.15 has now decreased to 0.7. She was initially began on heparin drip, but had some blood in her attends and this was discontinued. This was thought to be vaginal in nature, and [employer] SERV[employer] was consulted, but no bleeding source found on exam. Cardiology consult is pending. After discussion with family, pt was transitioned to DNRCC status. She has history of Dementia, schizophrenia, bipolar, anxiety, DM HTN, CHF. Upon my visit, she is awake and very fixated on her blanket, running her fingers along the edges. She is cooperative with my exam, but does not follow any commands. Speech therapy in to see pt as well, and she does not cooperate with swallow eval, saying "I don't want any". Appears in no distress. No family is present. CC: Coleen Momin MD Past Med Surg Social Fam HX - Past Medical History Medical history: CHF, dementia, diabetes, hypertension Psychiatric history: anxiety, bipolar, schizophrenia - Social History Smoking Status: Former smoker Smokeless Tobacco Status: No Alcohol use: none ROS unobtainable: due to mental status Palliative Care-Exam - Constitutional Vitals: Temp Pulse Resp BP Pulse Ox 97.7 F 79 15 133/68 95 07/31/17 07:00 07/31/17 07:00 07/31/17 07:00 07/31/17 07:00 07/31/17 09:03 General appearance: Present: no acute distress - Head Head Exam: Present: normal inspection, normocephalic - Eye Eye exam: Present: normal appearance, PERRL - Respiratory Respiratory exam: Present: decreased breath sounds, CTAB Additional comments: Shallow inspiratory effort - Cardiovascular Cardiovascular exam: Present: +S1, +S2 - GI/Abdominal Exam GI/Abdominal exam: Present: normal bowel sounds, soft - Extremities Exam Extremities exam: Present: normal capillary refill, normal inspection Additional comments: bilateral foot drop - Neurological Exam Neurological exam: Present: alert Additional comments: Disoriented, pleasant. Moves bilateral upper extremities, but does not follow commands. - Skin Skin exam: Present: dry, pallor, warm Internal Medicine - CN: Reslt - Labs CBC & Chem 7: 07/31/17 02:46 07/31/17 02:46 Labs: Short CBC 07/30/17 07/31/17 Range/Units 14:31 02:46 WBC 13.2 H 8.6 (4.3-11.1) K/mcL Hgb 12.1 11.0 L (11.5-15.4) g/dL Hct 35.8 33.1 L (35.3-44.9) % Plt Count 262 258 (140-400) K/mcL Neutrophils # 6.6 (1.6-8.9) K/mcL BMP 07/31/17 02:46 Sodium 140 Potassium 4.0 Chloride 107 Carbon Dioxide 23 BUN 19 Creatinine 0.99 Glucose 161 H Calcium 9.2 Cardiac Enzymes 07/30/17 07/30/17 07/31/17 Range/Units 14:36 20:57 02:46 Troponin I 0.15 H* 0.08 H* 0.07 H* (0-0.03) ng/mL Liver Function 07/31/17 Range/Units 02:46 Total Bilirubin 0.3 (0.2-1.2) mg/dL AST 23 (5-34) Units/L ALT 14 (0-55) Units/L Alkaline Phosphatase 60 (38-126) Units/L Albumin 2.9 L (3.5-5.0) g/dL - ABG Interpretation ABG results: PT/INR, D-dimer PT 12.3 Seconds (9.4-12.1) H 07/30/17 14:31 - Impressions Impressions Echocardiogram 07/30/17 14:11 Impressions: Normal sinus rhythm. LVEF 55%. Mild concentric left ventricular hypertrophy. Mild left ventricular diastolic dysfunction. Mild aortic regurgitation. Trace mitral regurgitation. Mild tricuspid regurgitation. Left Ventricular Wall Motion: Rest Echo Findings The mid inferior lateral wall was not visualized. All other visualized wall segments showed normal motion. Findings: Study Quality * Technically adequate exam. ECG Findings * Normal sinus rhythm. Left Ventricle * LVEF 55%. * Normal LV chamber size, wall thickness and function. * Mild concentric left ventricular hypertrophy. * Mild left ventricular diastolic dysfunction. * There is no LV thrombus. Right Ventricle * Normal right ventricular structure and function. Left Atrium * Normal left atrial size. Right Atrium * Normal right atrial size. Aortic Valve * Trileaflet aortic valve. * Normal aortic valve structure. * Mild aortic regurgitation. Mitral Valve * Normal mitral valve structure. * Trace mitral regurgitation. Tricuspid Valve * Normal tricuspid valve structure. * Mild tricuspid regurgitation. * No pulmonary hypertension. Pulmonic Valve * Pulmonic valve is not well visualized. Aorta * Normally sized aortic root. Pericardium * The pericardium appears normal. ADDENDUM: 07/30/17 1803 Impressions: Normal sinus rhythm. LVEF 55%. Mild concentric left ventricular hypertrophy. Mild left ventricular diastolic dysfunction. Mild aortic regurgitation. Trace mitral regurgitation. Mild tricuspid regurgitation. Left Ventricular Wall Motion: Rest Echo Findings The mid inferior lateral wall was not visualized. All other visualized wall segments showed normal motion. Findings: Study Quality * Technically adequate exam. ECG Findings * Normal sinus rhythm. Left Ventricle * LVEF 55%. * Normal LV chamber size, wall thickness and function. * Mild concentric left ventricular hypertrophy. * Mild left ventricular diastolic dysfunction. * There is no LV thrombus. Right Ventricle * Normal right ventricular structure and function. Left Atrium * Normal left atrial size. Right Atrium * Normal right atrial size. Aortic Valve * Trileaflet aortic valve. * Normal aortic valve structure. * Mild aortic regurgitation. Mitral Valve * Normal mitral valve structure. * Trace mitral regurgitation. Tricuspid Valve * Normal tricuspid valve structure. * Mild tricuspid regurgitation. * No pulmonary hypertension. Pulmonic Valve * Pulmonic valve is not well visualized. Aorta * Normally sized aortic root. Pericardium * The pericardium appears normal. Abdomen/Pelvis CT 07/30/17 20:30 IMPRESSION: Mild mural thickening is demonstrated of the rectum. This can be due to proctitis though given patient history of bleeding, neoplasm is an additional differential consideration. Suggest correlation with any recent colonoscopy. Small bladder calculi. Uterine fibroid. Trace bilateral pleural effusions. D/ / Ramírez Price MD / Ramírez Price MD Interpreting Provider: Ramírez Price MD Chest X-Ray 07/31/17 08:21 IMPRESSION: Technically limited study due to patient positioning. Evaluation of the left lower lung zone is limited. No obvious change from prior imaging. D/ / Lauro Hudson MD / Lauro Hudson MD Interpreting Provider: Lauro Hudson MD Palliative Quality Palliative Quality: Screen for Code Status: Yes, Screen for Goals of Care: NA ( pt nonverbal), Screen for Pain: NA, If Pain Regimen Started, Initiate Bowel Regimen: NA, Screen for Nausea/Vomitting: NA Code Status: 07/30/17 14:15 Resuscitation Status: Active [RES] Routine Comment: Pt. altered. 05/27/16 paperwork shows Full Code Resuscitation Status: Full Code Resuscitation Status: Active [RES] Routine Comment: Discussed w/son (POA) who authorized change Resuscitation Status: DNR-Comfort Care
[2017-07-31] MEDS ORDERED: 0.9 % Sodium Chloride 1,000 ML IVC SCH (11:15)
--- NOTE | 2017-07-31 15:07 | Electrocardiograph Report ---
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
[2017-07-31] MEDS ORDERED: Ibuprofen 200 MG TABLET PO PRN (16:08)
[2017-07-31] MEDS ORDERED: Acetaminophen 325 MG TABLET PO PRN (16:08)
[2017-07-31] MEDS ORDERED: MOM Conc 10 ML UD.LIQ PO PRN (16:08)
[2017-07-31] MEDS ORDERED: *HR* LORazepam 0.5 MG TABLET PO PRN (16:08)
[2017-07-31] MEDS: Azithromycin 500 MG in D5% in Water 250 ML IVPB SCH (18:27)
[2017-07-31] MEDS: Divalproex (12 HR) 250 MG TABLET PO SCH (22:03)
[2017-07-31] MEDS: Ziprasidone 20 MG CAPSULE PO SCH (22:03)
[2017-07-31] MEDS: risperiDONE 1 MG TABLET PO SCH (22:03)
[2017-08-01] MEDS: Ipratropium/Albuterol Neb 3 ML IH SCH ×4 (04:14→21:15)
[2017-08-01 06:01] LABS: Mean Corpuscular HGB Conc 33.4 g/dL (31.6-35.5); Mean Corpuscular Hemoglobin 30.4 pg (28.0-33.3); Mean Corpuscular Volume 90.9 fL (83.0-100.0)
[2017-08-01 06:02] LABS: Basophils # 0.1 K/mcL (0.0-0.2); Basophils % 0.8 %; Eosinophils # 0.1 K/mcL (0.0-0.6); Eosinophils % 1.4 %; Hematocrit 34.1 % (35.3-44.9); Hemoglobin 11.4 g/dL (11.5-15.4); Immature Granulocytes % 0.5 % (0-4); Lymphocytes # 2.1 K/mcL (0.6-4.6); Lymphocytes % 28.4 %; Mean Platelet Volume 10.2 fL (9.4-12.4); Monocytes # 0.6 K/mcL (0.0-1.3); Monocytes % 8.4 %; Neutrophils # 4.4 K/mcL (1.6-8.9); Platelet Count 243 K/mcL (140-400); Red Blood Count 3.75 M/mcL (3.82-4.97); Red Cell Distribution Width 13.4 % (11.5-14.5); Segmented Neutrophils % 60.5 %
[2017-08-01 06:11] LABS: Alanine Aminotransferase 16 Units/L (0-55); Alkaline Phosphatase 57 Units/L (38-126); Aspartate Amino Transferase 27 Units/L (5-34); BUN/Creatinine Ratio 17 (6-26); Bilirubin,Total 0.3 mg/dL (0.2-1.2); Blood Urea Nitrogen 15 mg/dL (7-20); Calcium 8.9 mg/dL (8.6-10.8); Carbon Dioxide 24 mEq/L (19-29); Chloride 110 mEq/L (98-109); Globulin 3.1 g/dL (2.4-3.5); Glucose 138 mg/dL (70-99); Osmolality,Calculated 297 (280-300); Potassium 3.9 mEq/L (3.5-4.5); Sodium 142 mEq/L (136-145); Total Protein 6.1 g/dL (6.0-8.3); eGFR For African Americans > 60 (> 60); eGFR For Non-African Americans > 60 (> 60)
[2017-08-01] MEDS: Insulin LISPRO 300 UNITS/3 ML VIAL SQ SCH ×4 (07:19→22:59)
[2017-08-01] MEDS: Furosemide 20 MG TABLET PO SCH (09:08)
[2017-08-01] MEDS: Multivit/Ca/Min/Fe/FA 1 TAB TABLET PO SCH (09:08)
[2017-08-01] MEDS: Ziprasidone 20 MG CAPSULE PO SCH ×2 (09:08→22:57)
[2017-08-01] MEDS: risperiDONE 1 MG TABLET PO SCH ×2 (09:08→22:56)
[2017-08-01] MEDS: Divalproex (12 HR) 250 MG TABLET PO SCH ×2 (09:08→22:57)
[2017-08-01] MEDS: cefTRIAXone 1,000 MG in Water for inj. (sterile) 10 ML IVPB SCH (09:09)
[2017-08-01] MEDS: CRANBERRY 900 MG PO SCH (09:09)
[2017-08-01] MEDS: Aspirin 81 MG TAB.CHEW PO SCH (09:09)
--- NOTE | 2017-08-01 09:48 | Palliative Progress Note ---
Date of Encounter: 08/01/17 Time of Encounter: 09:40 - Assessment and plan (1) Debility Current Visit: Yes Status: Acute Assessment and plan: PT/OT consult pending. Did well with speech later yesterday and diet/home medications ordered. Monitor (2) Counseling regarding advanced care planning and goals of care Current Visit: Yes Status: Acute Assessment and plan: FAmily expected to arrive this afternoon. Will f/u at that time. (3) Elevated troponin Current Visit: Yes Status: Acute Assessment and plan: Troponins decreased, echo stable. Cardiology has signed off, no interventions planned at this time other than medication management. - Time Spent With Patient Total time spent is greater than 50% in coordination of care (as documented) at patient's floor/unit and/or counseling patient: 25 - 35 minutes - Subjective Interval history: Patient awake and alert - much more conversant this am. Can tell me name, and that she is in hospital and recalls what she had for breakfast this am. Denies pain and states she is feeling better. Cardiology recommendations noted, and pt medial medically managed. No further bleeding and hgb stable. - Constitutional Vitals: Abnormal lab results RBC 3.75 M/mcL (3.82-4.97) L 08/01/17 05:46 Hgb 11.4 g/dL (11.5-15.4) L 08/01/17 05:46 Hct 34.1 % (35.3-44.9) L 08/01/17 05:46 PT 12.3 Seconds (9.4-12.1) H 07/30/17 14:31 Chloride 110 mEq/L (98-109) H 08/01/17 05:46 Glucose 138 mg/dL (70-99) H 08/01/17 05:46 POC Glucose 147 (58-89) H 07/31/17 20:08 Hemoglobin A1c 6.0 % (-5.6) H 07/31/17 02:46 Troponin I 0.07 ng/mL (0-0.03) H* 07/31/17 02:46 Albumin 3.0 g/dL (3.5-5.0) L 08/01/17 05:46 Albumin/Globulin Ratio 1.0 (1.1-2.2) L 08/01/17 05:46 LDL Cholesterol, Calc 113 mg/dL (0-99) H 07/31/17 02:46 General appearance: Present: no acute distress - Respiratory Respiratory exam: Present: CTAB - Cardiovascular Cardiovascular exam: Present: +S1, +S2 - GI/Abdominal GI/Abdominal exam: Present: normal bowel sounds, soft - Additional comments: Incontinent, wears attends - Extremities Exam Extremities exam: Present: normal capillary refill, normal inspection - Neurological Exam Neurological exam: Present: alert Additional comments: Oriented to name and place. Needs reoriented to time and situation. Follows very simple commands - Skin Skin exam: Present: dry, warm Palliative Quality Palliative Quality: Screen for Code Status: Yes, Screen for Goals of Care: NA ( pt nonverbal), Screen for Pain: NA, If Pain Regimen Started, Initiate Bowel Regimen: NA, Screen for Nausea/Vomitting: NA Code Status: 07/30/17 14:15 Resuscitation Status: Active [RES] Routine Comment: Pt. altered. 05/27/16 paperwork shows Full Code Resuscitation Status: Full Code Resuscitation Status: Active [RES] Routine Comment: Discussed w/son (POA) who authorized change Resuscitation Status: DNR-Comfort Care - Labs CBC & Chem 7: 08/01/17 05:46 08/01/17 05:46 Labs: Laboratory Results - last 24 hr 07/31/17 07/31/17 07/31/17 07:44 11:57 16:54 WBC RBC Hgb Hct MCV MCH MCHC RDW Plt Count MPV Immature Gran % Seg Neutrophils % Lymphocytes % Monocytes % Eosinophils % Basophils % Neutrophils # Lymphocytes # Monocytes # Eosinophils # Basophils # Sodium Potassium Chloride Carbon Dioxide BUN Creatinine Est GFR ( Amer) Est GFR (Non-Af Amer) BUN/Creatinine Ratio Glucose POC Glucose 133 H 169 H 153 H Calculated Osmolality Calcium Total Bilirubin AST ALT Alkaline Phosphatase Serum Total Protein Albumin Globulin Albumin/Globulin Ratio 07/31/17 08/01/17 08/01/17 20:08 05:46 05:46 WBC 7.3 RBC 3.75 L Hgb 11.4 L Hct 34.1 L MCV 90.9 MCH 30.4 MCHC 33.4 RDW 13.4 Plt Count 243 MPV 10.2 Immature Gran % 0.5 Seg Neutrophils % 60.5 Lymphocytes % 28.4 Monocytes % 8.4 Eosinophils % 1.4 Basophils % 0.8 Neutrophils # 4.4 Lymphocytes # 2.1 Monocytes # 0.6 Eosinophils # 0.1 Basophils # 0.1 Sodium 142 Potassium 3.9 Chloride 110 H Carbon Dioxide 24 BUN 15 Creatinine 0.87 Est GFR ( Amer) > 60 Est GFR (Non-Af Amer) > 60 BUN/Creatinine Ratio 17 Glucose 138 H POC Glucose 147 H Calculated Osmolality 297 Calcium 8.9 Total Bilirubin 0.3 AST 27 ALT 16 Alkaline Phosphatase 57 Serum Total Protein 6.1 Albumin 3.0 L Globulin 3.1 Albumin/Globulin Ratio 1.0 L - ABG Interpretation ABG results: PT/INR, D-dimer PT 12.3 Seconds (9.4-12.1) H 07/30/17 14:31 Consult Discharge Plan - Plan Referrals: Cordell Marte MD [Primary Care Provider] -
--- NOTE | 2017-08-01 12:21 | Internal Med Progress Note ---
Date of Encounter: 08/01/17 Time of Encounter: 12:15 - Assessment and plan (1) SOB (shortness of breath) Current Visit: Yes Status: Acute Assessment and plan: presented with chest pain and shortness of breath, noted to have mild Troponin leak, peak at 0.15. Cardiology consult appreciated, no further testing at this time, recommend medical management. Currently asymptomatic. (2) Elevated troponin Current Visit: Yes Status: Resolved (3) UTI (urinary tract infection) Current Visit: Yes Status: Acute Assessment and plan: Urine culture from 07/28/17 grows Aerococcus, pending sensitivity; continue Rocephin and f/up final results; Qualifiers: Urinary tract infection type: site unspecified Hematuria presence: with hematuria Qualified Code(s): N39.0 - Urinary tract infection, site not specified; R31.9 - Hematuria, unspecified; R31.9 - Hematuria, unspecified (4) Pneumonia Current Visit: Yes Status: Suspected Assessment and plan: CT abdomen shows incodental possible bibasal infiltrates; continue IV Rocephin and Azithromycin for now; blood cultures remain negative; continues to require baseline O2 requirements at 3L/min via NC; Qualifiers: Pneumonia type: due to unspecified organism Laterality: bilateral Lung location: lower lobe of lung Qualified Code(s): J18.9 - Pneumonia, unspecified organism (5) Meningioma Current Visit: Yes Status: Chronic Assessment and plan: CT head from recent previous admission showed 2.2*2.5*2.6cm extra-axial mass consistent with meningioma; patient is noted to be on Depakote, unclear if this is for mood disorder or seizure disorder; MRI brain has been ordered during this admission which could not be completed due to noncompliance and agitation. Hold off for now, recommend outpatient f/up, given patient's family decision of making her DNR-CC; palliative care discussed with patient's family, agreed on no aggressive intervention and code status has been changed to DNR-CC; not quite Hospice candidate yet; (6) Hypertension Current Visit: Yes Status: Chronic Assessment and plan: BP well-controlled; Qualifiers: Hypertension type: essential hypertension Qualified Code(s): I10 - Essential (primary) hypertension (7) DM type 2 (diabetes mellitus, type 2) Current Visit: Yes Status: Chronic Assessment and plan: continue Accucheck blood glucose monitoring with sliding scale insulin as needed ; blood sugars noted to be well-controlled; diabetic diet as tolerated; Qualifiers: Diabetes mellitus complication status: with unspecified complications Diabetes mellitus intermediate project manager insulin use: without assisted use Qualified Code( s): E11.8 - Type 2 diabetes mellitus with unspecified complications (8) Dementia Current Visit: Yes Status: Chronic Assessment and plan: confusion and disorientation at baseline; tolerates pureed diet; PELT INSPECTOR recommendations noted; continue anxiolytics, antipsychotics, supportive care; Qualifiers: Dementia type: Alzheimer's disease Alzheimer's disease onset: unspecified onset Dementia behavioral disturbance: with behavioral disturbance Qualified Code(s): G30.8 - Other Alzheimer's disease; F02.81 - Dementia in other diseases classified elsewhere with behavioral disturbance; F02.81 - Dementia in other diseases classified elsewhere with behavioral disturbance; F02.81 - Dementia in other diseases classified elsewhere with behavioral disturbance (9) Vaginal bleeding Current Visit: Yes Status: Ruled-out Assessment and plan: less likely vaginal bleed; ASSEMBLER MOLDED FRAMES consult appreciated; (10) Hypothyroidism Current Visit: Yes Status: Chronic Assessment and plan: continue Levothyroxine; Qualifiers: Hypothyroidism type: unspecified Qualified Code(s): E03.9 - Hypothyroidism , unspecified - Subjective Interval history: Unable to answer questions or provide history due to dementia; eager to eat her lunch at this time, tolerates pureed diet and thin liquids; no cough, does not report chest or abdominal pain; - Constitutional Vitals: Temp Pulse Resp BP Pulse Ox 98.2 F 83 12 127/73 92 08/01/17 10:41 08/01/17 10:41 08/01/17 10:44 08/01/17 10:41 08/01/17 10:44 General appearance: Present: A&O X 1. Absent: answers questions appropriately - Respiratory Respiratory exam: Present: CTAB. Absent: accessory muscle use, rales, rhonchi, wheezes - Cardiovascular Cardiovascular exam: Present: RRR, +S1, +S2. Absent: diastolic murmur, gallop, rubs, systolic murmur - GI/Abdominal GI/Abdominal exam: Present: normal bowel sounds, soft, no peritoneal signs. Absent: distended, tenderness - Extremities Exam Extremities exam: Present: full ROM, warm, radial pulses palpable and symmetrical. Absent: calf tenderness, cyanotic, pedal edema - Neurological Exam Neurological exam: Present: altered, no focal deficits (does not follow commands ). Absent: pronater drift, facial droop, speech deficit Internal Medicine: Result - Labs CBC & Chem 7: 08/01/17 05:46 08/01/17 05:46 Labs: Short CBC 08/01/17 Range/Units 05:46 WBC 7.3 (4.3-11.1) K/mcL Hgb 11.4 L (11.5-15.4) g/dL Hct 34.1 L (35.3-44.9) % Plt Count 243 (140-400) K/mcL Neutrophils # 4.4 (1.6-8.9) K/mcL BMP 08/01/17 05:46 Sodium 142 Potassium 3.9 Chloride 110 H Carbon Dioxide 24 BUN 15 Creatinine 0.87 Glucose 138 H Calcium 8.9 Liver Function 08/01/17 Range/Units 05:46 Total Bilirubin 0.3 (0.2-1.2) mg/dL AST 27 (5-34) Units/L ALT 16 (0-55) Units/L Alkaline Phosphatase 57 (38-126) Units/L Albumin 3.0 L (3.5-5.0) g/dL - ABG Interpretation ABG results: PT/INR, D-dimer PT 12.3 Seconds (9.4-12.1) H 07/30/17 14:31 - VTE Documentation of Mechanical Device: Intermittent pneumatic compression device Consult Discharge Plan - Plan Referrals: Cordell Marte MD [Primary Care Provider] -
--- NOTE | 2017-08-01 13:54 | Event Note ---
Date of Encounter: 08/01/17 Time of Encounter: 13:45 Met with pt , 2 sons, and daughter n law. Updated on clinical status. Discussed goals of care. desires to continue DNRCC and does not want any resuscitation, however, he states if she has conditions that are treatable where benefit outweighs risk, he would consent. Explained that at this time, cardiology recommended medical management and no indication for heart cath, and bleeding has subsided so at this time, no urgency for scope, but informed them that they still need to consider if they desire that aggressive of testing. Family verbalized understanding. is extremely hard of hearing and frail - he is difficult to communicate with. He states he would agree with whatever son Phani thought. signed DNRCC state form and desire to continue treatment for infection. Discussed with family that she does not quite meet criteria for hospice care at this time, however, if she further declines in regards to mental function, dysphagia, etc, hospice could evaluate her at ECF and enroll if indicated. Family verbalized understanding. Newton Escudero also provided family education and was present for discussion.
[2017-08-01] MEDS: Azithromycin 500 MG in D5% in Water 250 ML IVPB SCH (22:53)
[2017-08-02] MEDS: Ipratropium/Albuterol Neb 3 ML IH SCH ×3 (04:37→16:02)
[2017-08-02 05:27] LABS: Hematocrit 34.2 % (35.3-44.9); Hemoglobin 10.9 g/dL (11.5-15.4); Immature Granulocytes % 0.7 % (0-4); Lymphocytes % 41.4 %; Mean Corpuscular HGB Conc 31.9 g/dL (31.6-35.5); Mean Corpuscular Hemoglobin 29.7 pg (28.0-33.3); Mean Corpuscular Volume 93.2 fL (83.0-100.0); Mean Platelet Volume 9.8 fL (9.4-12.4); Monocytes % 7.9 %; Platelet Count 244 K/mcL (140-400); Red Blood Count 3.67 M/mcL (3.82-4.97); Red Cell Distribution Width 13.5 % (11.5-14.5); Segmented Neutrophils % 43.7 %
[2017-08-02 05:28] LABS: Basophils # 0.1 K/mcL (0.0-0.2); Basophils % 1.2 %; Eosinophils # 0.3 K/mcL (0.0-0.6); Eosinophils % 5.1 %; Lymphocytes # 2.4 K/mcL (0.6-4.6); Monocytes # 0.5 K/mcL (0.0-1.3); Neutrophils # 2.5 K/mcL (1.6-8.9)
[2017-08-02 05:40] LABS: Alanine Aminotransferase 19 Units/L (0-55); Albumin 2.8 g/dL (3.5-5.0); Alkaline Phosphatase 53 Units/L (38-126); Aspartate Amino Transferase 26 Units/L (5-34); BUN/Creatinine Ratio 24 (6-26); Bilirubin,Total 0.6 mg/dL (0.2-1.2); Blood Urea Nitrogen 20 mg/dL (7-20); Calcium 8.6 mg/dL (8.6-10.8); Carbon Dioxide 23 mEq/L (19-29); Chloride 111 mEq/L (98-109); Globulin 2.9 g/dL (2.4-3.5); Glucose 118 mg/dL (70-99); Osmolality,Calculated 296 (280-300); Sodium 141 mEq/L (136-145); Total Protein 5.7 g/dL (6.0-8.3); eGFR For African Americans > 60 (> 60); eGFR For Non-African Americans > 60 (> 60)
--- NOTE | 2017-08-02 08:34 | Palliative Progress Note ---
Date of Encounter: 08/02/17 Time of Encounter: 08:30 - Assessment and plan (1) Debility Current Visit: Yes Status: Acute Assessment and plan: Continue PT/OT. (2) Counseling regarding advanced care planning and goals of care Current Visit: Yes Status: Acute Assessment and plan: Met with family yesterday - code status confirmed as DNRCC and state form signed by . They continue to desire infection treated. She does not meet 7C criteria for dementia, not eligible for hospice at this time. She can return to [facility] when approved by hospitalist - D/W Dr. Porras yesterday -still awaiting final result on urine culture performed at [place]. Palliative will sign off. Please call if questions. (3) Constipation Current Visit: Yes Status: Acute Assessment and plan: Only smear bm documented since admission. Laxatives have been ordered PRN, but pt has not received any. Start Senokot scheduled today. (4) Elevated troponin Current Visit: Yes Status: Acute - Time Spent With Patient Total time spent is greater than 50% in coordination of care (as documented) at patient's floor/unit and/or counseling patient: - Subjective Interval history: Patient awake and alert - ate all of breakfast. Denies pain. Pleasant. No family present - Constitutional Vitals: Abnormal lab results RBC 3.67 M/mcL (3.82-4.97) L 08/02/17 05:11 Hgb 10.9 g/dL (11.5-15.4) L 08/02/17 05:11 Hct 34.2 % (35.3-44.9) L 08/02/17 05:11 PT 12.3 Seconds (9.4-12.1) H 07/30/17 14:31 Chloride 111 mEq/L (98-109) H 08/02/17 05:11 Glucose 118 mg/dL (70-99) H 08/02/17 05:11 POC Glucose 224 (58-89) H 08/01/17 20:33 Hemoglobin A1c 6.0 % (-5.6) H 07/31/17 02:46 Troponin I 0.07 ng/mL (0-0.03) H* 07/31/17 02:46 Serum Total Protein 5.7 g/dL (6.0-8.3) L 08/02/17 05:11 Albumin 2.8 g/dL (3.5-5.0) L 08/02/17 05:11 Albumin/Globulin Ratio 1.0 (1.1-2.2) L 08/02/17 05:11 LDL Cholesterol, Calc 113 mg/dL (0-99) H 07/31/17 02:46 General appearance: Present: no acute distress - Respiratory Respiratory exam: Present: decreased breath sounds, CTAB Additional comments: Harsh moist cough - Cardiovascular Cardiovascular exam: Present: +S1, +S2 - GI/Abdominal GI/Abdominal exam: Present: normal bowel sounds, soft - Extremities Exam Extremities exam: Present: normal capillary refill, normal inspection - Neurological Exam Neurological exam: Present: alert Additional comments: Oriented to name and place only. Follows simple commands. AVELAR - Skin Skin exam: Present: dry, warm Palliative Quality Palliative Quality: Screen for Code Status: Yes, Screen for Goals of Care: NA ( pt nonverbal), Screen for Pain: NA, If Pain Regimen Started, Initiate Bowel Regimen: NA, Screen for Nausea/Vomitting: NA Code Status: 07/30/17 14:15 Resuscitation Status: Active [RES] Routine Comment: Pt. altered. 05/27/16 paperwork shows Full Code Resuscitation Status: Full Code Resuscitation Status: Active [RES] Routine Comment: Discussed w/son (POA) who authorized change Resuscitation Status: DNR-Comfort Care - Labs CBC & Chem 7: 08/02/17 05:11 08/02/17 05:11 Labs: Laboratory Results - last 24 hr 08/01/17 08/01/17 08/01/17 06:28 16:21 20:33 WBC RBC Hgb Hct MCV MCH MCHC RDW Plt Count MPV Immature Gran % Seg Neutrophils % Lymphocytes % Monocytes % Eosinophils % Basophils % Neutrophils # Lymphocytes # Monocytes # Eosinophils # Basophils # Sodium Potassium Chloride Carbon Dioxide BUN Creatinine Est GFR ( Amer) Est GFR (Non-Af Amer) BUN/Creatinine Ratio Glucose POC Glucose 133 H 170 H 224 H Calculated Osmolality Calcium Total Bilirubin AST ALT Alkaline Phosphatase Serum Total Protein Albumin Globulin Albumin/Globulin Ratio 08/02/17 08/02/17 05:11 05:11 WBC 5.7 RBC 3.67 L Hgb 10.9 L Hct 34.2 L MCV 93.2 MCH 29.7 MCHC 31.9 RDW 13.5 Plt Count 244 MPV 9.8 Immature Gran % 0.7 Seg Neutrophils % 43.7 Lymphocytes % 41.4 Monocytes % 7.9 Eosinophils % 5.1 Basophils % 1.2 Neutrophils # 2.5 Lymphocytes # 2.4 Monocytes # 0.5 Eosinophils # 0.3 Basophils # 0.1 Sodium 141 Potassium 4.0 Chloride 111 H Carbon Dioxide 23 BUN 20 Creatinine 0.82 Est GFR ( Amer) > 60 Est GFR (Non-Af Amer) > 60 BUN/Creatinine Ratio 24 Glucose 118 H POC Glucose Calculated Osmolality 296 Calcium 8.6 Total Bilirubin 0.6 AST 26 ALT 19 Alkaline Phosphatase 53 Serum Total Protein 5.7 L Albumin 2.8 L Globulin 2.9 Albumin/Globulin Ratio 1.0 L - ABG Interpretation ABG results: PT/INR, D-dimer PT 12.3 Seconds (9.4-12.1) H 07/30/17 14:31 Consult Discharge Plan - Plan Referrals: Cordell Marte MD [Primary Care Provider] -
[2017-08-02] MEDS ORDERED: Sennosides/Docusate Sodium TABLET PO SCH (09:00)
[2017-08-02] MEDS: cefTRIAXone 1,000 MG in Water for inj. (sterile) 10 ML IVPB SCH (10:47)
[2017-08-02] MEDS: Divalproex (12 HR) 250 MG TABLET PO SCH (10:48)
[2017-08-02] MEDS: Furosemide 20 MG TABLET PO SCH (10:48)
[2017-08-02] MEDS: Aspirin 81 MG TAB.CHEW PO SCH (10:48)
[2017-08-02] MEDS: risperiDONE 1 MG TABLET PO SCH (10:48)
[2017-08-02] MEDS: Multivit/Ca/Min/Fe/FA 1 TAB TABLET PO SCH (10:48)
[2017-08-02] MEDS: Ziprasidone 20 MG CAPSULE PO SCH (10:48)
[2017-08-02] MEDS: CRANBERRY 900 MG PO SCH (11:07)
[2017-08-02] MEDS: Insulin LISPRO 300 UNITS/3 ML VIAL SQ SCH ×2 (11:08→14:25)
--- NOTE | 2017-08-02 11:53 | Discharge Summary ---
Date of Encounter: 08/03/17 Time of Encounter: 11:51 - Discharge Diagnosis (1) SOB (shortness of breath) Priority: Primary Status: Acute (2) Elevated troponin Priority: Primary Status: Resolved (3) UTI (urinary tract infection) Priority: Primary Status: Acute Qualifiers: Urinary tract infection type: site unspecified Hematuria presence: with hematuria Qualified Code(s): N39.0 - Urinary tract infection, site not specified; R31.9 - Hematuria, unspecified; R31.9 - Hematuria, unspecified (4) Pneumonia Priority: Primary Status: Suspected Qualifiers: Pneumonia type: due to unspecified organism Laterality: bilateral Lung location: lower lobe of lung Qualified Code(s): J18.9 - Pneumonia, unspecified organism (5) Meningioma Priority: Secondary Status: Chronic (6) Hypertension Priority: Secondary Status: Chronic Qualifiers: Hypertension type: essential hypertension Qualified Code(s): I10 - Essential (primary) hypertension (7) DM type 2 (diabetes mellitus, type 2) Priority: Secondary Status: Chronic Qualifiers: Diabetes mellitus complication status: with unspecified complications Diabetes mellitus oil heaterman insulin use: without jail use Qualified Code( s): E11.8 - Type 2 diabetes mellitus with unspecified complications (8) Dementia Priority: Secondary Status: Chronic Qualifiers: Dementia type: Alzheimer's disease Alzheimer's disease onset: unspecified onset Dementia behavioral disturbance: with behavioral disturbance Qualified Code(s): G30.8 - Other Alzheimer's disease; F02.81 - Dementia in other diseases classified elsewhere with behavioral disturbance; F02.81 - Dementia in other diseases classified elsewhere with behavioral disturbance; F02.81 - Dementia in other diseases classified elsewhere with behavioral disturbance (9) Vaginal bleeding Priority: Secondary Status: Ruled-out (10) Hypothyroidism Priority: Secondary Status: Chronic Qualifiers: Hypothyroidism type: unspecified Qualified Code(s): E03.9 - Hypothyroidism , unspecified - Discharge Medications Prescriptions: Cefdinir [Omnicef] 300 mg PO BID #10 capsule Home Medications: Bisacodyl [Woman's Laxative] 5 mg PO PRN PRN 07/28/17 [History] Cranberry 900 mg PO DAILY 07/28/17 [History] Divalproex Sodium [Depakote] 250 mg PO BID 07/28/17 [History] Docusate [Colace] 100 mg PO DAILY 07/28/17 [History] Furosemide [Lasix] 20 mg PO DAILY 07/28/17 [History] Levothyroxine [Synthroid] 50 mcg PO 0630 07/28/17 [History] Sitagliptin Phosphate [Januvia] 50 mg PO DAILY 07/28/17 [History] Acetaminophen [Tylenol] 650 mg PO Q4H PRN 07/31/17 [History] Benztropine Mesylate 1 mg PO BID 07/31/17 [History] Ibuprofen [Motrin] 400 mg PO Q8H PRN 07/31/17 [History] Losartan Potassium [Cozaar] 50 mg PO DAILY 07/31/17 [History] Magnesium Hydroxide [Milk of Magnesia] 30 ml PO DAILY PRN 07/31/17 [History] Mv,Fe,Min/Lutein [A Thru Z [employer] Women's Tablet] 1 tab PO DAILY 07/31/17 [ History] Ondansetron HCl [Zofran] 4 mg PO Q4H PRN 07/31/17 [History] Ziprasidone HCl [Geodon] 20 mg PO BID 07/31/17 [History] risperiDONE [RisperDAL] 1 mg PO BID 07/31/17 [History] Aspirin 81 mg PO DAILY tab.chew 08/02/17 [Rx] Atorvastatin [Lipitor] 10 mg PO HS tablet 08/02/17 [Rx] Cefdinir [Omnicef] 300 mg PO BID #10 capsule 08/02/17 [Rx] LORazepam [Ativan] 0.5 mg PO TID PRN #20 08/02/17 [Rx] Sennosides/Docusate Sodium [Senna Plus] 1 each PO BID tablet 08/02/17 [Rx] Allergies/Adverse Reactions: 3 Allergy/AdvReac Type Severity Reaction Status Date / Time No Known Allergies Allergy Verified 07/28/17 06:37 Procedures/tests Complete & Pending: Procedures Performed prior 72 hours Category Date Time Status CT abd pelvis wo no iv no oral [CT] Routine Cat Scan 07/30/17 20:30 Completed ECG 12 lead ECG [ECG] Routine Y 07/30/17 14:06 Completed EV echocardiogram Stat Y 07/30/17 14:11 Completed Date of admission: 07/30/17 14:15 Primary care physician: Cordell Marte MD Consults: 07/30/17 13:11 Consult to Nutrition [CONS] Routine Comment: Consulting Provider: NUTRITION Reason for Dietary Consult: PO Supplementation Consult to Cereal Miller [CONS] Routine Reason for SW Consult: return to [facility] 07/30/17 13:49 Consult to Cardiology [CONS] Routine Comment: Consulting Provider: Cardiology Idalia Reason for Consult: Patient has troponin of 0.16. Was admitted to [facility] on 07/28 for confusion/AMS and discharged on 07/29. Troponin on 07/28 was 0.02, then 0.05. Troponin today is 0.16. Patient is altered and is non-verbal for the most part. Was able to say that her heart was hurting and pointed to central chest. No recent echocardiogram. Echo ordered STAT as well as EKG. Call Completed: Yes 07/30/17 14:19 Consult to Occupational Therapy [CONS] Routine Comment: Evaluate, develop and implement POC Reason for Consult: Patient has hx of falls/injury. Resides at SNF. Please assess for strength, stability, safety, ambulation, and possible assistive needs for post-discharge planning. 07/30/17 14:20 Consult to Physical Therapy [CONS] Routine Comment: Evaluate, develop and implement POC Reason for Consult: Patient has hx of falls/injury. Resides at SNF. Please assess for strength, stability, safety, ambulation, and possible assistive needs for post-discharge planning. 07/30/17 14:40 Consult to STORE SALES MANAGER [CONS] Stat Consulting Provider: FIRE CONTROL TECHNICIAN B Idalia Reason for Consult: Patient is 77 year old with vaginal bleeding. Pt. resides in a longterm and has advanced dementia and is essentially non-verbal. Call Completed: Yes 07/30/17 15:21 Consult to Palliative Care [CONS] Routine Comment: Consulting Provider: Palliative Care Idalia Reason for Consult: Patient is 77 year-old with advanced dementia and AMS. Came to ED today w/elevated troponin of 0.16. Cardiology consulted and ordered heparin drip was to begin when nurse noticed vaginal bleeding in disposable pants. Cardiology recommendation was to hold heparin drip d/t bleeding. FIRE CONTROL TECHNICIAN B consult placed and discussed w/Dr. Blank who recommended to transfer pt. tori. Called pts. son (POA ) to discuss transfer versus possible palliative care options and son wishes to keep pt. here w/palliative care. Attempted to call son back to change pts. code status from full code to DNRCC, but son had left to discuss w/his father. Will call again this afternoon. Waiting on echocardiogram results. Call Completed: Yes Discharging clinician: Mary Porras Anticipated date of discharge: 08/02/17 - Patient Status Disposition: Transfer SNF Condition: Fair Functional capacity at discharge: bed bound Overall status at discharge: patient is progressing back to baseline - Discharge Instructions Follow Up With: Cordell Marte MD [Primary Care Provider] - Additional Instructions: F/up with PCP in 1-2 weeks - Diet and Activity Activity: as per physical therapy Diet: advance to your usual diet (pureed diet amd thin liquids) Hospital course: Ms. Hewitt is a 77 year old female with advanced dementia and multiple medical problems, who was sent from longterm with complaints of chest pain or shortness of breath. Patient was started on telemetry monitoring, serial troponins showed mild troponin leak with peak troponin 0.15. EKG showed no acute changes. Cardiology was consulted and recommended medical management. Troponins gradually trended down. Echocardiogram showed preserved ejection fraction, no new wall motion abnormalities, mild concentric LVH, mild left ventricular diastolic dysfunction. She also had suspected vaginal bleeding. Gynecology evaluation was completed and this was ruled out. Hemoglobin remained stable during this hospitalization. CT head done during her previous hospitalization showed possible meningioma. Palliative care was consulted and after family meeting, the patient's CODE STATUS has been changed to DNR comfort care, she is not a candidate for hospice at this time. Patient was evaluated by PILLAR WORKER and cleared for pureed diet with thin liquids. She is currently medically stable for transfer back to longterm with outpatient cardiology follow-up. - Time Spent with Patient Total time spent providing and/or coordinating discharge services: Greater than 30 minutes (45 min) - Constitutional Vitals: Temp Pulse Resp BP Pulse Ox 98.0 F 90 16 121/61 93 08/02/17 10:55 08/02/17 10:55 08/02/17 10:55 08/02/17 10:55 08/02/17 11:10 General appearance: Present: A&O X 1. Absent: answers questions appropriately - Respiratory Respiratory exam: Present: CTAB. Absent: accessory muscle use, rales, rhonchi, wheezes - Cardiovascular Cardiovascular exam: Present: RRR, +S1, +S2. Absent: diastolic murmur, gallop, rubs, systolic murmur - VTE Documentation of Mechanical Device: Intermittent pneumatic compression device
--- NOTE | 2017-08-02 11:59 | Physician Discharge Referral ---
ExtendedCare Referral Info Transfer To: [facility] Provider in Charge: Mary Porras Provider in Charge after Transfer: PCP Institutional Level of Care: Skilled - Diagnosis (1) SOB (shortness of breath) Priority: Primary Status: Acute (2) Elevated troponin Priority: Primary Status: Resolved (3) UTI (urinary tract infection) Priority: Primary Status: Acute (4) Pneumonia Priority: Primary Status: Suspected (5) Meningioma Priority: Secondary Status: Chronic (6) Hypertension Priority: Secondary Status: Chronic (7) DM type 2 (diabetes mellitus, type 2) Priority: Secondary Status: Chronic (8) Dementia Priority: Secondary Status: Chronic (9) Vaginal bleeding Priority: Primary Status: Ruled-out (10) Hypothyroidism Priority: Secondary Status: Chronic Expected Duration of Placement: intermodal dispatcher Prognosis: Fair Aware of Diagnosis: Family Aware of Prognosis: Family - Transfer Medications Prescriptions: Cefdinir [Omnicef] 300 mg PO BID #10 capsule Home Medications: Bisacodyl [Woman's Laxative] 5 mg PO PRN PRN 07/28/17 [History] Cranberry 900 mg PO DAILY 07/28/17 [History] Divalproex Sodium [Depakote] 250 mg PO BID 07/28/17 [History] Docusate [Colace] 100 mg PO DAILY 07/28/17 [History] Furosemide [Lasix] 20 mg PO DAILY 07/28/17 [History] Levothyroxine [Synthroid] 50 mcg PO 0630 07/28/17 [History] Sitagliptin Phosphate [Januvia] 50 mg PO DAILY 07/28/17 [History] LORazepam [Ativan] 0.5 mg PO TID PRN #0 07/29/17 [Rx] Acetaminophen [Tylenol] 650 mg PO Q4H PRN 07/31/17 [History] Benztropine Mesylate 1 mg PO BID 07/31/17 [History] Ibuprofen [Motrin] 400 mg PO Q8H PRN 07/31/17 [History] Losartan Potassium [Cozaar] 50 mg PO DAILY 07/31/17 [History] Magnesium Hydroxide [Milk of Magnesia] 30 ml PO DAILY PRN 07/31/17 [History] Mv,Fe,Min/Lutein [A Thru Z [employer] Women's Tablet] 1 tab PO DAILY 07/31/17 [ History] Ondansetron HCl [Zofran] 4 mg PO Q4H PRN 07/31/17 [History] Ziprasidone HCl [Geodon] 20 mg PO BID 07/31/17 [History] risperiDONE [RisperDAL] 1 mg PO BID 07/31/17 [History] Aspirin 81 mg PO DAILY tab.chew 08/02/17 [Rx] Atorvastatin [Lipitor] 10 mg PO HS tablet 08/02/17 [Rx] Cefdinir [Omnicef] 300 mg PO BID #10 capsule 08/02/17 [Rx] Sennosides/Docusate Sodium [Senna Plus] 1 each PO BID tablet 08/02/17 [Rx] Allergies/Adverse Reactions: 3 Allergy/AdvReac Type Severity Reaction Status Date / Time No Known Allergies Allergy Verified 07/28/17 06:37 - Respiratory Orders Oxygen / L per min (2L/min via NC PRN) Smoking Cessation: Smoking cessation has been advised. For more information, call the [employer] Tobacco Quit Line at 3-463-XZTZ-NOW. - Advance Directives Power of Lozenge Maker Helper: Yes Code Status: DNR-Comfort Care - Mobility Orders Bedrest - Rehabiliation Orders Rehab Potential: Poor Rehab Orders: ROM Exercises, Evaluation for Physical Therapy, Evaluation for Occupational Therapy - Diet Orders Pureed CERTIFICATION: I certify that the transfer of the above named patient to an Extended Care Facility is necessary for the continuing treatment of the diagnosis listed. The above information is true and accurate reflection of patient's current condition. Confidential - Redisclosure prohibited without a patient's written consent.
[2017-08-02 14:45] VITALS: BP 136/66
[2017-08-02] MEDS ORDERED: Azithromycin 250 MG TABLET PO SCH (18:00)
== END 2017-08-02 16:02 | DRG 194 ==
LOC: 2NENU → SUATTDRO 14:15
PROVIDERS: ADMIT Internal Medicine; ATTEND Internal Medicine